=== PATIENT | female | born 1975 | race African-American/Black ===

== ENCOUNTER 2017-01-20 00:04 | Emergency (ER) | payer OTHER ==
[2017-01-20 00:54] VITALS: BP 169/110; PULSE 89; TEMP 97.1; BMI 34.3
[2017-01-20] MEDS ORDERED: LEVOFLOXACIN 250 MG TABLET (FP) PO ONE (01:48)
[2017-01-20] MEDS ORDERED: FLUCONAZOLE 100 MG TABLET (UD) PO ONE (01:48)
--- NOTE | 2017-01-20 01:51 | PDOC ---
History of Present Illness - General Chief Complaint: Pain Stated Complaint: FOOT PAIN Time Seen by Provider: 01/20/17 01:07 History Source: Patient - History of Present Illness Initial Comments: 01/20/17 01:47 41 year old female with b/l fungal rash to both feet that is progressively worsening in the last week as per patient.desquamation to both feet patient reports antifungal cream application with no improvement. + foul smell, + erythema to both feet. denies fever. + sensation Past History - Past Medical History Allergies/Adverse Reactions: Allergies Allergy/AdvReac Type Severity Reaction Status Date / Time No Known Allergies Allergy Verified 01/20/17 00:41 Home Medications: Ambulatory Orders Amlodipine Besylate [Norvasc -] 5 mg PO DAILY 02/14/17 Losartan/Hydrochlorothiazide [Losartan-Hctz 50-12.5 mg Tab] 1 each PO DAILY Clindamycin [Cleocin -] 300 mg PO TID #21 capsule 02/21/17 Fluocinonide 0.05% Oin [Lidex 0.05% Ointment -] 1 applic TP DAILY #30 grams Nicotine Patch [Nicoderm Patch -] 21 mg TD DAILY #30 patch 02/21/17 Piperacillin/Tazob 3.375 gm [Zosyn 3.375GM Ivpb (Pre-Docked)] 50 ml IVPB Q8H-IV bag 02/21/17 HTN: Yes Suicide Attempt (Hx): No - Psycho/Social/Smoking Cessation Hx Anxiety: No Suicidal Ideation: No Smoking History: Current every day smoker Have you smoked in the past 12 months: Yes Number of Cigarettes Smoked Daily: 30 Information on smoking cessation initiated: No 'Breaking Loose' booklet given: 06/21/14 Hx Alcohol Use: No Drug/Substance Use Hx: No Substance Use Type: Alcohol Review of Systems - Review of Systems Able to Perform ROS?: Yes Is the patient limited [place] proficient: No Constitutional: No: Symptoms Reported, See HPI, Chills, Diaphoresis, Fever, Loss of Appetite, Malaise, Night Sweats, Weakness, Weight Stable, Unintentional Wgt. Loss, Unexplained wgt Loss, Other Integumentary: Yes: Erythema, Rash (both feet) *Physical Exam - Vital Signs Last Vital Signs Temp Pulse Resp BP Pulse Ox 97.1 F L 89 20 169/110 96 01/20/17 00:41 01/20/17 00:41 01/20/17 00:41 01/20/17 00:41 01/20/17 00:41 - Physical Exam General Appearance: Yes: Appropriately Dressed Extremity: positive: Pedal Edema (b/l), Other (scaling in between both feet, + foul smell, redness and slight warmth to both feet) Integumentary: positive: Normal Color, Dry, Warm Neurologic: positive: Fully Oriented, Alert, Normal Mood/Affect Medical Decision Making - Medical Decision Making A: tinea pedis b/l with super infection P: fluconazole Levaquin. patient advised to inpatient admission for further management of care. patient is refusing at this time due to childcare issues at home. strict return precautions reviewed with patient. patient advised to return for worsenign symptoms as soon as possible. *DC/Admit/Observation/Transfer Diagnosis at time of Disposition: Tinea pedis of both feet, Cellulitis and abscess of foot - Discharge Dispostion Disposition: HOME Condition at time of disposition: Stable - Referrals Referrals: Ebenezer Luther MD [Primary Care Provider] - - Patient Instructions Printed Discharge Instructions: DI for Athlete's Foot Additional Instructions: clean feet keep feet dry/. apply clotrimazole as prescribed. take levaquin as prescribed. follow up with your doctor as soon as possible. return to the ER if symptoms worsen.
[2017-01-20] MEDS ORDERED: LEVOFLOXACIN 250 MG TABLET (FP) ONE (02:08)
[2017-01-20] MEDS ORDERED: LEVOFLOXACIN 500 MG TABLET (FP) ONE (02:08)
[2017-01-20] MEDS ORDERED: FLUCONAZOLE 100 MG TABLET (UD) ONE (02:08)
== END 2017-01-20 02:15 | disposition home or self-care (01) ==
LOC: JER 00:04
DX: L03.116 Cellulitis of left lower limb (principal); L03.115 Cellulitis of right lower limb; B35.3 Tinea pedis
CPT/HCPCS: 99281-25

== ENCOUNTER 2017-02-14 11:31 | Inpatient (IN) | payer OTHER ==
--- NOTE | 2017-02-14 12:29 | PDOC ---
History of Present Illness - General History Source: Patient Exam Limitations: No Limitations - History of Present Illness Initial Comments: 02/14/17 13:20 <Ghosh,Lizbeth - Last Filed: 02/14/17 13:39> - General History Source: Patient Exam Limitations: No Limitations - History of Present Illness Initial Comments: 02/14/17 15:33 Patient is a 41-year-old female with history of hypertension who complains of worsening pain and swelling to her feet bilaterally (left greater than right), with extensive disquamation and blistering of the skin of the involved extremities despite being compliant with antibiotic regiment which included Cipro, followed by cephalexin and topical Bactroban prescribed by her medical doctor and a fitness sales associate. Patient states that the pain is constant, severe, prevents her from being able to ambulate with ease, is worse with weightbearing , and involves paresthesias. Patient denies nausea/vomiting/diarrhea/fever/ chills. REVIEW OF SYSTEMS CONSTITUTIONAL: No fever, no chills, no fatigue EYES: No visual changes ENT: No ear pain, no sore throat CARDIOVASCULAR: No chest pain, no palpitations RESPIRATORY: No cough, no SOB GI: No abdominal pain, no nausea, no vomiting, no constipation, no diarrhea GENITOURINARY: No dysuria, no frequency, no hematuria MUSKULOSKELETAL: b/l foot pain, no myalgias SKIN: + blistering/disquamation of the skin b/l NEURO: No headache EXAMINATION CONSTITUTIONAL: Well-appearing; well-nourished; in no apparent distress HEAD: Normocephalic; atraumatic EYES: PERRL; EOM intact ENMT: External appears normal; normal oropharynx NECK: Supple; non-tender; no cervical lymphadenopathy CARD: Normal S1, S2; no murmurs, rubs, or gallops RESP: Normal chest excursion with respiration; breath sounds clear and equal bilaterally; no wheezes, rhonchi, or rales ABD: Soft, non-distended; non-tender; no palpable organomegaly, no palpable hernias EXT: + Extensive disquamation and blistering of the patient's feet bilaterally with numerous excoriations, extensive macerated areas interdigitally and fluid- filled vesicles bilaterally; left foot is erythematous and edematous, warm to touch c/w cellulitis; DP/TP-- intact b/l SKIN: Warm, dry, no rash NEURO: No focal neurological deficiencies. <Vini Self - Last Filed: 02/14/17 15:50> - General Chief Complaint: Abscess Boil Stated Complaint: PAIN Time Seen by Provider: 02/14/17 12:21 Past History <Lizbeth Ghosh - Last Filed: 02/14/17 13:39> - Past Medical History HTN: Yes Suicide Attempt (Hx): No - Psycho/Social/Smoking Cessation Hx Anxiety: No Suicidal Ideation: No Smoking History: Current every day smoker Have you smoked in the past 12 months: Yes Number of Cigarettes Smoked Daily: 20 Information on smoking cessation initiated: No 'Breaking Loose' booklet given: 06/21/14 Hx Alcohol Use: No Drug/Substance Use Hx: No Substance Use Type: None <Vini Self - Last Filed: 02/14/17 15:50> - Past Medical History Allergies/Adverse Reactions: Allergies Allergy/AdvReac Type Severity Reaction Status Date / Time No Known Allergies Allergy Verified 02/14/17 12:12 Home Medications: Ambulatory Orders Amlodipine Besylate [Norvasc -] 5 mg PO DAILY 02/14/17 Losartan/Hydrochlorothiazide [Losartan-Hctz 50-12.5 mg Tab] 1 each PO DAILY Review of Systems - Review of Systems Able to Perform ROS?: Yes Comments:: 02/14/17 13:21 <Lizbeth Ghosh - Last Filed: 02/14/17 13:39> *Physical Exam - Vital Signs Last Vital Signs Temp Pulse Resp BP Pulse Ox 98.3 F 95 H 18 143/105 100 02/14/17 12:05 02/14/17 12:05 02/14/17 12:05 02/14/17 12:05 02/14/17 12:05 - Physical Exam Comments: 02/14/17 13:21 <Lizbeth Ghosh - Last Filed: 02/14/17 13:39> - Vital Signs Last Vital Signs Temp Pulse Resp BP Pulse Ox 98.3 F 95 H 18 143/105 100 02/14/17 12:05 02/14/17 12:05 02/14/17 12:05 02/14/17 12:05 02/14/17 12:05 <Vini Self - Last Filed: 02/14/17 15:50> ED Treatment Course - LABORATORY CBC & Chemistry Diagram: 02/14/17 13:01 02/14/17 13:01 - ADDITIONAL ORDERS Additional order review: 02/14/17 13:01 RBC 4.93 MCV 86.8 MCHC 32.0 RDW 15.4 MPV 9.5 Neutrophils % 74.4 Lymphocytes % 15.0 Monocytes % 7.8 Eosinophils % 2.0 Basophils % 0.8 <Lizbeth Ghosh - Last Filed: 02/14/17 13:39> - LABORATORY CBC & Chemistry Diagram: 02/14/17 13:01 02/14/17 13:01 <Vini Self - Last Filed: 02/14/17 15:50> Medical Decision Making - Medical Decision Making 02/14/17 13:[address] Dumont. Immediate response. Case was discussed. 02/14/17 13:39 Dr. Dumont arrived to the ER and examined the patient. <Lizbeth Ghosh - Last Filed: 02/14/17 13:39> - Medical Decision Making 02/14/17 15:44 Patient is a 41-year-old female who presents with extensive disquamation, maceration and blistering of both feet that has not responded to treatment with ciprofloxacin, cephalexin and topical Bactroban. In the ER, patient is awake and alert, afebrile, hemodynamically stable. Left foot appears cellulitic requiring inpatient antibiotic therapy and podiatric consult. <Vini Self - Last Filed: 02/14/17 15:50> *DC/Admit/Observation/Transfer - Attestations Scribe Attestion: 02/14/17 13:21 Documentation prepared by Lizbeth Ghosh, acting as senior medical transcriptionist for Vini Self MD. <Lizbeth Ghosh - Last Filed: 02/14/17 13:39> - Discharge Dispostion Admit: Yes <Vini Self - Last Filed: 02/14/17 15:50> Diagnosis at time of Disposition: Cellulitis and abscess of foot - Discharge Dispostion Condition at time of disposition: Fair - Referrals Referrals: Lorna Luther [Primary Care Provider] -
[2017-02-14 13:16] LABS: BASOPHIL 0.8 % (0-2.0); MCH 27.8 pg (25.7-33.7); MEAN CELL VOLUME 86.8 fl (80-96); MEAN PLT VOLUME 9.5 fl (7.5-11.1); NEUTROPHILS 74.4 % (42.8-82.8); PLATELET COUNT 187 K/MM3 (134-434); RDW 15.4 % (11.6-15.6); WHITE BLOOD COUNT 12.1 K/mm3 (4.0-10.0)
[2017-02-14 13:32] LABS: ALBUMIN 3.5 g/dl (3.4-5.0); ANION GAP 14 (8-16); BILIRUBIN,TOTAL 1.2 mg/dL (0.2-1.0); C-REACTIVE PROTEIN 1.1 MG/DL (0.00-0.3); CALCIUM 9.2 mg/dL (8.5-10.1); CO2 26 mmol/L (21-32); CREATININE 0.6 mg/dL (0.55-1.02); GLUCOSE,RANDOM 96 mg/dL (74-106); SGOT/AST 25 U/L (15-37); SGPT/ALT 23 U/L (12-78); TOT PROT 7.6 g/dl (6.4-8.2)
[2017-02-14 13:33] LABS: ALK PHOS 74 U/L (45-117); INR 1.09 (0.82-1.09)
[2017-02-14] MEDS ORDERED: VANCOMYCIN 1,500 MG in DEXTROSE 5%-WATER - 500 ML IVPB ONE (14:10)
[2017-02-14 17:07] LABS: ERYTHROCYTE SEDIMENTATION RATE 25 mm/hr (0-20)
--- NOTE | 2017-02-14 18:01 | CONSULT ---
Consult - text type - Consultation Consultation Note: Podiatry Consultation: 41 year old F, history of HTN, presents with severe blistering, drainage and increased redness/swelling to bilateral feet L>R. Patient reports that her feet have been blistering and scaling since December. She has seen PCP and ice skater recently for said problem. She was prescribed keflex and bactroban with no improvement. Also was placed on levaquin in ED, again with no improvement. She denies F/V/N/C/SOB/CP. She has painful blistering of the feet with drainage. Patient does not recall applying any medication directly on the feet prior to symptoms. She does note wearing new shoegear frequently, sometimes without socks. PMHx: HTN Meds: noted in chart ALL: NKMA ANABELA: Pedal pulses palpable, TG wnl, CFT brisk to all toes bilaterally. On bilateral feet, left worse than right, there is extensive desquamation of the plantar arch and the digits. There is maceration present interdigitally. There is significant serous blistering with fluctuance throughout both feet. There is no purulent drainage, no probing ulcers, no soft tissue crepitus. There is edema and erythema to the left foot. There is no streaking cellulitis. There is no lymphadenopathy. WBC: 12.1 ESR: 25 Blood Cx: pending B/L Foot XR: pending Imp: 41 year old F ? of contact dermatitis vs. tinea pedis with superimposed bacterial infection 1. IV abx 2. Needs wound cx 3. F/u foot XR 4. ID consultation 5. Will follow. Thank you for the consult. Karoline Meier DPM
[2017-02-14 18:40] VITALS: BMI 30.7
--- NOTE | 2017-02-14 19:05 | HP ---
Admitting History and Physical - Admission History of Present Illness: Pt is a 41 y/o female w/ PH significant for HTN. Pt presented to the ER with severe blistering, drainage and increased redness/swelling to bilateral feet L> R since December. Pt saw her PMD and was started on antibxs(bactrim/keflex) w/ no improvement. She also then developed a rash and was told it was due to antibxs ? but wasn't given anything. - Past Medical History Cardiovascular: Yes: HTN - Smoking History Smoking history: Current every day smoker Have you smoked in the past 12 months: Yes Aproximately how many cigarettes per day: 20 - Alcohol/Substance Use Hx Alcohol Use: No Home Medications - Allergies Allergies/Adverse Reactions: Allergies Allergy/AdvReac Type Severity Reaction Status Date / Time No Known Allergies Allergy Verified 02/14/17 12:12 - Home Medications Home Medications: Ambulatory Orders Amlodipine Besylate [Norvasc -] 5 mg PO DAILY 02/14/17 Losartan/Hydrochlorothiazide [Losartan-Hctz 50-12.5 mg Tab] 1 each PO DAILY Family Disease History - Family Disease History Family History: Unremarkable Review of Systems - Review of Systems Constitutional: reports: No Symptoms Eyes: reports: No Symptoms HENT: reports: No Symptoms Neck: reports: No Symptoms Cardiovascular: reports: No Symptoms Respiratory: reports: No Symptoms Gastrointestinal: reports: No Symptoms Physical Examination Vital Signs: Vital Signs Temperature 98.2 F 02/14/17 18:23 Pulse Rate 79 02/14/17 18:23 Respiratory Rate 20 02/14/17 18:23 Blood Pressure 155/101 02/14/17 18:23 O2 Sat by Pulse Oximetry (%) 98 02/14/17 18:23 Constitutional: Yes: Anxious Eyes: Yes: WNL HENT: Yes: WNL Neck: Yes: WNL Cardiovascular: Yes: WNL, Regular Rate and Rhythm Respiratory: Yes: WNL, Regular, CTA Bilaterally Gastrointestinal: Yes: WNL, Normal Bowel Sounds, Soft Extremities: Yes: Other (B/L exfoliation w/ maceration present interdigitally. Open blisters between toes) Problem List - Problems (1) Cellulitis Assessment/Plan: Cont IV antibxs ID consult Vascular consult Wound culture Wound care Code(s): L03.90 - CELLULITIS, UNSPECIFIED (2) HTN (hypertension) Assessment/Plan: Cont antihypertensives BP stable Code(s): I10 - ESSENTIAL (PRIMARY) HYPERTENSION
[2017-02-14] MEDS: PIPERACILLIN/TAZOB 3.375 GM/50 ML PRE-DOCKED IVPB SCH (21:03)
[2017-02-14] MEDS: HEPARIN NA (PORCINE) 5,000 UNITS/ML 1ML VIAL SQ SCH (21:03)
[2017-02-14] MEDS: KETOROLAC TROMETHAMINE 30 MG/1 ML VIAL IVPB PRN (23:55)
[2017-02-14] MEDS: diphenhydrAMINE HCL 25 MG CAPSULE (FP) PO PRN (23:56)
[2017-02-15] MEDS ORDERED: PIPERACILLIN/TAZOB 3.375 GM/50 ML PRE-DOCKED IVPB SCH (02:00)
[2017-02-15] MEDS ORDERED: VANCOMYCIN 1 GRAM (PRE-DOCKED) 1,000 MG/250 ML BAG IVPB ONE (02:00)
[2017-02-15] MEDS: PIPERACILLIN/TAZOB 3.375 GM/50 ML PRE-DOCKED IVPB SCH (06:17)
[2017-02-15] MEDS: diphenhydrAMINE HCL 25 MG CAPSULE (FP) PO PRN ×2 (06:22→22:53)
[2017-02-15 06:55] LABS: EOSINOPHIL 4.9 % (0-4.5); MCH 28.5 pg (25.7-33.7); MEAN CELL VOLUME 86.3 fl (80-96); MEAN PLT VOLUME 9.7 fl (7.5-11.1); NEUTROPHILS 69.2 % (42.8-82.8); PLATELET COUNT 178 K/MM3 (134-434); WHITE BLOOD COUNT 9.4 K/mm3 (4.0-10.0)
[2017-02-15 07:15] LABS: ALBUMIN 2.5 g/dl (3.4-5.0); ALK PHOS 56 U/L (45-117); ANION GAP 12 (8-16); BILIRUBIN,TOTAL 0.5 mg/dL (0.2-1.0); CALCIUM 8.6 mg/dL (8.5-10.1); CO2 27 mmol/L (21-32); CREATININE 0.7 mg/dL (0.55-1.02); GLUCOSE,RANDOM 106 mg/dL (74-106); SGOT/AST 16 U/L (15-37); SGPT/ALT 18 U/L (12-78); TOT PROT 5.8 g/dl (6.4-8.2)
[2017-02-15] MEDS: HEPARIN NA (PORCINE) 5,000 UNITS/ML 1ML VIAL SQ SCH ×2 (09:56→22:54)
[2017-02-15] MEDS: LOSARTAN 50MG/HCTZ 12.5MG 1 TAB (FP) PO SCH (09:56)
[2017-02-15] MEDS: amLODIPine BESYLATE 5 MG TABLET (FP) PO SCH (09:56)
[2017-02-15] MEDS: PIPERACILLIN/TAZOB 3.375 GM 50 ML IVPB SCH ×2 (13:50→17:35)
[2017-02-15] MEDS ORDERED: PT OWN MED DRAWER 7, Y5N ONE ×2 (14:32→17:31)
[2017-02-15] MEDS: CLINDAMYCIN 300 MG PREMIX IVPB 50 ML IVPB SCH ×2 (14:32→17:34)
[2017-02-15] MEDS: NYSTATIN 100,000 UNIT/GM TOPICAL CREAM 15 GM TUBE TP SCH ×2 (17:35→23:04)
--- NOTE | 2017-02-15 22:23 | PN ---
Progress Note, Physician History of Present Illness: No new complaints - Current Medication List Current Medications: Active Medications Amlodipine Besylate (Norvasc -) 5 mg PO DAILY [facility] Last Admin: 02/15/17 09:56 Dose: 5 mg Diphenhydramine HCl (Benadryl -) 25 mg PO Q6H PRN PRN Reason: ITCHINESS Last Admin: 02/15/17 06:22 Dose: 25 mg HCTZ/Losartan Potassium (Hyzaar -) 1 tab PO DAILY [facility] Last Admin: 02/15/17 09:56 Dose: 1 tab Heparin Sodium (Porcine) (Heparin -) 5,000 unit SQ BID [facility] Last Admin: 02/15/17 09:56 Dose: 5,000 unit Clindamycin Phosphate (Cleocin 300 Mg Premix Ivpb) 50 mls @ 100 mls/hr IVPB Q8H -IV [facility] Last Admin: 02/15/17 17:34 Dose: 100 mls/hr Piperacillin Sod/Tazobactam Sod (Zosyn 3.375gm Ivpb (Pre-Docked)) 50 mls @ 100 mls/hr IVPB Q8H-IV [facility] PRN Reason: Protocol Last Admin: 02/15/17 17:35 Dose: 100 mls/hr Ketorolac Tromethamine (Toradol Injection -) 30 mg IVPB Q6H PRN PRN Reason: PAIN Stop: 02/19/17 23:43 Last Admin: 02/14/17 23:55 Dose: 30 mg Nystatin (Mycostatin Cream -) 1 applic TP Q6HPO [facility] Last Admin: 02/15/17 17:35 Dose: 1 applic - Objective Vital Signs: Vital Signs Temperature 97.6 F 02/15/17 13:35 Pulse Rate 67 02/15/17 13:35 Respiratory Rate 18 02/15/17 13:35 Blood Pressure 126/67 02/15/17 13:35 O2 Sat by Pulse Oximetry (%) 99 02/15/17 09:00 Constitutional: Yes: Well Nourished Eyes: Yes: WNL HENT: Yes: WNL Neck: Yes: Supple Cardiovascular: Yes: WNL, Regular Rate and Rhythm Respiratory: Yes: WNL, Regular, Hyperresonant Extremities: Yes: Other ((B/L exfoliation w/ maceration present interdigitally. Open blisters between toes)) Labs: CBC, BMP 02/15/17 05:55 02/15/17 05:55 INR, PTT INR 1.09 (0.82-1.09) 02/14/17 13:01 Problem List - Problems (1) Cellulitis Assessment/Plan: Cont IV vanco//[email or web address]/clinda ID consult appreciated Vascular consult Wound culture Wound care Code(s): L03.90 - CELLULITIS, UNSPECIFIED (2) HTN (hypertension) Assessment/Plan: Cont antihypertensives BP stable Code(s): I10 - ESSENTIAL (PRIMARY) HYPERTENSION
[2017-02-15] MEDS: KETOROLAC TROMETHAMINE 30 MG/1 ML VIAL IVPB PRN (22:53)
[2017-02-16] MEDS: VANCOMYCIN 1 GRAM (PRE-DOCKED) 1,000 MG/250 ML BAG IVPB SCH (00:52)
[2017-02-16] MEDS ORDERED: PT OWN MED DRAWER 7, Y5N ONE ×2 (01:22→18:01)
[2017-02-16] MEDS: CLINDAMYCIN 300 MG PREMIX IVPB 50 ML IVPB SCH ×3 (01:26→18:03)
[2017-02-16] MEDS: PIPERACILLIN/TAZOB 3.375 GM 50 ML IVPB SCH ×3 (01:26→18:32)
[2017-02-16] MEDS: NYSTATIN 100,000 UNIT/GM TOPICAL CREAM 15 GM TUBE TP SCH ×4 (05:28→23:30)
[2017-02-16] MEDS: HEPARIN NA (PORCINE) 5,000 UNITS/ML 1ML VIAL SQ SCH ×2 (10:40→21:21)
[2017-02-16] MEDS: amLODIPine BESYLATE 5 MG TABLET (FP) PO SCH (10:42)
[2017-02-16] MEDS: LOSARTAN 50MG/HCTZ 12.5MG 1 TAB (FP) PO SCH (10:42)
[2017-02-16] MEDS: NICOTINE 21 MG/24 HOURS TOPICAL PATCH TD SCH (10:42)
--- NOTE | 2017-02-16 15:51 | CONSULT ---
Consult Consult Specialty:: infectious diseases Referred by:: Reason for Consultation:: cellulitis of both legs,foot - History of Present Illness Chief Complaint: swelling and pain of both legs History of Present Illness: y of Present Illness: Pt is a 41 y/o female w/ PH significant for HTN. patient came with multiple blisters on the legs bilateral and according to her has been going for quite a few days She mentions that she had seen her PMD and was prescribed abx --bactrim/keflex without any resolvement patient also showing rash and says it developed after se had abx patient also got levaquin - History Source History Provided By: Patient Limitations to Obtaining History: No Limitations - Past Medical History Cardio/Vascular: Yes: HTN - Alcohol/Substance Use Hx Alcohol Use: No - Smoking History Smoking history: Current every day smoker Have you smoked in the past 12 months: Yes Aproximately how many cigarettes per day: 20 Home Medications - Allergies Allergies/Adverse Reactions: Allergies Allergy/AdvReac Type Severity Reaction Status Date / Time No Known Allergies Allergy Verified 02/14/17 12:12 - Home Medications Home Medications: Ambulatory Orders Amlodipine Besylate [Norvasc -] 5 mg PO DAILY 02/14/17 Losartan/Hydrochlorothiazide [Losartan-Hctz 50-12.5 mg Tab] 1 each PO DAILY Review of Systems - Review of Systems Constitutional: reports: No Symptoms Eyes: reports: No Symptoms HENT: reports: No Symptoms Neck: reports: No Symptoms Cardiovascular: reports: No Symptoms Respiratory: reports: No Symptoms Gastrointestinal: reports: No Symptoms Genitourinary: reports: No Symptoms Musculoskeletal: reports: Other Integumentary: reports: Erythema, Lesions, Rash, Other (bilateral feet ulcers with desquamations) Neurological: reports: No Symptoms Endocrine: reports: No Symptoms Hematology/Lymphatic: reports: No Symptoms Psychiatric: reports: No Symptoms Physical Exam Vital Signs: Vital Signs Temperature 98.1 F 02/16/17 14:15 Pulse Rate 60 02/16/17 14:15 Respiratory Rate 20 02/16/17 10:00 Blood Pressure 148/89 02/16/17 14:15 O2 Sat by Pulse Oximetry (%) 99 02/15/17 09:00 Constitutional: Yes: Well Nourished, No Distress, Calm Eyes: Yes: Conjunctiva Clear Cardiovascular: Yes: Regular Rate and Rhythm Respiratory: Yes: Regular, CTA Bilaterally Gastrointestinal: Yes: Normal Bowel Sounds, Soft Musculoskeletal: Yes: Other Extremities: Yes: Other Integumentary: Yes: Erythema, Other Wound/Incision: Yes: Other (On bilateral feet, left worse than right, there is extensive desquamation of the plantar arch and the digits. There is maceration present interdigitally. There is significant serous blistering with fluctuance throughout both feet. There is no purulent drainage,nocrepitus. There is edema and erythema to the left foot. no lymphadenopathy,no significant cellulitits) Labs: CBC, BMP 02/15/17 05:55 02/15/17 05:55 Imaging - Results X-ray: Report Reviewed, Image Reviewed Assessment/Plan after looking at the leg patient has a high chance of having both bacterial and fungal infection with chances of mrsa patient otherwise looks comfortable i have looked at the podiatry note at the moment i am going to start her on abx we might need to cx the foor but i think it will be mixed cx roblem List - Problems (1) Cellulitis Assessment/Plan: Code(s): L03.90 - CELLULITIS, UNSPECIFIED (2) HTN (hypertension) Code(s): I10 - ESSENTIAL (PRIMARY) HYPERTENSION fungal infection of the foot plan will start clinda and zosyn nystatin cream for local application rest as per primary podiatry on case
--- NOTE | 2017-02-16 16:00 | PN ---
Progress Note, Physician History of Present Illness: patient feeling much better wants to go home patient says she had seen some gift consultant legs looking better - Current Medication List Current Medications: Active Medications Amlodipine Besylate (Norvasc -) 5 mg PO DAILY [facility] Last Admin: 02/16/17 10:42 Dose: 5 mg Diphenhydramine HCl (Benadryl -) 25 mg PO Q6H PRN PRN Reason: ITCHINESS Last Admin: 02/15/17 22:53 Dose: 25 mg HCTZ/Losartan Potassium (Hyzaar -) 1 tab PO DAILY [facility] Last Admin: 02/16/17 10:42 Dose: 1 tab Heparin Sodium (Porcine) (Heparin -) 5,000 unit SQ BID [facility] Last Admin: 02/16/17 10:40 Dose: 5,000 unit Clindamycin Phosphate (Cleocin 300 Mg Premix Ivpb) 50 mls @ 100 mls/hr IVPB Q8H -IV [facility] Last Admin: 02/16/17 10:57 Dose: 100 mls/hr Piperacillin Sod/Tazobactam Sod (Zosyn 3.375gm Ivpb (Pre-Docked)) 50 mls @ 100 mls/hr IVPB Q8H-IV [facility] PRN Reason: Protocol Last Admin: 02/16/17 10:42 Dose: 100 mls/hr Ketorolac Tromethamine (Toradol Injection -) 30 mg IVPB Q6H PRN PRN Reason: PAIN Stop: 02/19/17 23:43 Last Admin: 02/15/17 22:53 Dose: 30 mg Nicotine (Nicoderm Patch -) 21 mg TD DAILY [facility] Last Admin: 02/16/17 10:42 Dose: Not Given Nystatin (Mycostatin Cream -) 1 applic TP Q6HPO [facility] Last Admin: 02/16/17 12:49 Dose: 1 applic - Objective Vital Signs: Vital Signs Temperature 98.1 F 02/16/17 14:15 Pulse Rate 60 02/16/17 14:15 Respiratory Rate 20 02/16/17 10:00 Blood Pressure 148/89 02/16/17 14:15 O2 Sat by Pulse Oximetry (%) 99 02/15/17 09:00 Constitutional: Yes: No Distress, Calm Cardiovascular: Yes: Regular Rate and Rhythm Respiratory: Yes: Regular, CTA Bilaterally Gastrointestinal: Yes: Normal Bowel Sounds, Soft Musculoskeletal: Yes: Other Extremities: Yes: Other Wound/Incision: Yes: Other (wounds as described before) Neurological: Yes: Alert, Oriented Psychiatric: Yes: Alert, Oriented Labs: CBC, BMP 02/15/17 05:55 02/15/17 05:55 INR, PTT INR 1.09 (0.82-1.09) 02/14/17 13:01 Assessment/Plan after looking at the leg patient has a high chance of having both bacterial and fungal infection with chances of mrsa patient otherwise looks comfortable i have looked at the podiatry note at the moment i am going to start her on abx we might need to cx the foor but i think it will be mixed cx roblem List - Problems (1) Cellulitis Assessment/Plan: Code(s): L03.90 - CELLULITIS, UNSPECIFIED (2) HTN (hypertension) Code(s): I10 - ESSENTIAL (PRIMARY) HYPERTENSION fungal infection of the foot plan continue current line of mgmt improving i think we should get a dermatology opinion rest ct current mgmt
--- NOTE | 2017-02-16 17:34 | CONSULT ---
Consult - Past Medical History Cardio/Vascular: Yes: HTN - Alcohol/Substance Use Hx Alcohol Use: No - Smoking History Smoking history: Current every day smoker Have you smoked in the past 12 months: Yes Aproximately how many cigarettes per day: 20 Home Medications - Allergies Allergies/Adverse Reactions: Allergies Allergy/AdvReac Type Severity Reaction Status Date / Time No Known Allergies Allergy Verified 02/14/17 12:12 - Home Medications Home Medications: Ambulatory Orders Amlodipine Besylate [Norvasc -] 5 mg PO DAILY 02/14/17 Losartan/Hydrochlorothiazide [Losartan-Hctz 50-12.5 mg Tab] 1 each PO DAILY Physical Exam Vital Signs: Vital Signs Temperature 98.1 F 02/16/17 14:15 Pulse Rate 60 02/16/17 14:15 Respiratory Rate 20 02/16/17 10:00 Blood Pressure 148/89 02/16/17 14:15 O2 Sat by Pulse Oximetry (%) 99 02/15/17 09:00 Labs: CBC, BMP 02/15/17 05:55 02/15/17 05:55 Assessment/Plan Vascular Surgery Patient is a 41-year-old female with history of hypertension who complains of worsening pain and swelling to her feet bilaterally (left greater than right), with extensive disquamation and blistering of the skin of the involved extremities despite being compliant with antibiotic regiment which included Cipro, followed by cephalexin and topical Bactroban prescribed by her medical doctor and a data review specialist. Patient states that the pain is constant, severe, prevents her from being able to ambulate with ease, is worse with weightbearing , and involves paresthesias. Patient denies nausea/vomiting/diarrhea/fever/chill PE head - NC/At Lung - CTA Heart - RRR abd - soft,nt,nd Ext - Bilateral lower ext ulcers with blisters. Painful to touch Pt has good pulses. feet are warm. A/P 1. compression with tali 2. IV antibiotics. No need for vascular intervention. Should follow in wound care clinic after DC Podiatry on case. Brock Dumont DO
--- NOTE | 2017-02-16 20:19 | PN ---
Progress Note, Physician History of Present Illness: No new complaints - Current Medication List Current Medications: Active Medications Amlodipine Besylate (Norvasc -) 5 mg PO DAILY [facility] Last Admin: 02/16/17 10:42 Dose: 5 mg Diphenhydramine HCl (Benadryl -) 25 mg PO Q6H PRN PRN Reason: ITCHINESS Last Admin: 02/15/17 22:53 Dose: 25 mg HCTZ/Losartan Potassium (Hyzaar -) 1 tab PO DAILY [facility] Last Admin: 02/16/17 10:42 Dose: 1 tab Heparin Sodium (Porcine) (Heparin -) 5,000 unit SQ BID [facility] Last Admin: 02/16/17 10:40 Dose: 5,000 unit Clindamycin Phosphate (Cleocin 300 Mg Premix Ivpb) 50 mls @ 100 mls/hr IVPB Q8H -IV [facility] Last Admin: 02/16/17 18:03 Dose: 100 mls/hr Piperacillin Sod/Tazobactam Sod (Zosyn 3.375gm Ivpb (Pre-Docked)) 50 mls @ 100 mls/hr IVPB Q8H-IV [facility] PRN Reason: Protocol Last Admin: 02/16/17 18:32 Dose: 100 mls/hr Ketorolac Tromethamine (Toradol Injection -) 30 mg IVPB Q6H PRN PRN Reason: PAIN Stop: 02/19/17 23:43 Last Admin: 02/15/17 22:53 Dose: 30 mg Nicotine (Nicoderm Patch -) 21 mg TD DAILY [facility] Last Admin: 02/16/17 10:42 Dose: Not Given Nystatin (Mycostatin Cream -) 1 applic TP Q6HPO [facility] Last Admin: 02/16/17 18:45 Dose: Not Given - Objective Vital Signs: Vital Signs Temperature 98.1 F 02/16/17 14:15 Pulse Rate 60 02/16/17 14:15 Respiratory Rate 20 02/16/17 10:00 Blood Pressure 148/89 02/16/17 14:15 O2 Sat by Pulse Oximetry (%) 99 02/15/17 09:00 Constitutional: Yes: Well Nourished, Other (SKIN papular rash on extremities/ trunk/neck) Eyes: Yes: WNL HENT: Yes: WNL Neck: Yes: WNL, Supple Cardiovascular: Yes: WNL, Regular Rate and Rhythm Respiratory: Yes: WNL, Regular, CTA Bilaterally Gastrointestinal: Yes: WNL, Normal Bowel Sounds, Soft Extremities: Yes: Other ((+) b/l erythema w/ open blisters) Labs: CBC, BMP 02/15/17 05:55 02/15/17 05:55 INR, PTT INR 1.09 (0.82-1.09) 02/14/17 13:01 Problem List - Problems (1) Cellulitis Assessment/Plan: Cont IV vanco//zosyn/clinda Cont wound care Wound culture w/ multiple organisims Will get derm consult Benadryl prn Code(s): L03.90 - CELLULITIS, UNSPECIFIED (2) HTN (hypertension) Assessment/Plan: Cont antihypertensives BP stable Code(s): I10 - ESSENTIAL (PRIMARY) HYPERTENSION
[2017-02-16] MEDS: diphenhydrAMINE HCL 25 MG CAPSULE (FP) PO PRN (21:21)
[2017-02-16] MEDS: KETOROLAC TROMETHAMINE 30 MG/1 ML VIAL IVPB PRN (23:12)
[2017-02-17] MEDS ORDERED: PT OWN MED DRAWER 7, Y5N ONE ×4 (01:08→22:53)
[2017-02-17] MEDS: CLINDAMYCIN 300 MG PREMIX IVPB 50 ML IVPB SCH ×3 (01:28→17:22)
[2017-02-17] MEDS: PIPERACILLIN/TAZOB 3.375 GM 50 ML IVPB SCH ×3 (02:14→17:22)
[2017-02-17] MEDS: NYSTATIN 100,000 UNIT/GM TOPICAL CREAM 15 GM TUBE TP SCH ×4 (05:54→23:07)
[2017-02-17] MEDS: LOSARTAN 50MG/HCTZ 12.5MG 1 TAB (FP) PO SCH (10:06)
[2017-02-17] MEDS: HEPARIN NA (PORCINE) 5,000 UNITS/ML 1ML VIAL SQ SCH ×2 (10:06→22:05)
[2017-02-17] MEDS: amLODIPine BESYLATE 5 MG TABLET (FP) PO SCH (10:06)
[2017-02-17] MEDS: NICOTINE 21 MG/24 HOURS TOPICAL PATCH TD SCH (10:07)
--- NOTE | 2017-02-17 16:37 | CONSULT ---
Consult Consult Specialty:: Dermatology - History Source History Provided By: Patient - Past Medical History Cardio/Vascular: Yes: HTN - Alcohol/Substance Use Hx Alcohol Use: No - Smoking History Smoking history: Current every day smoker Have you smoked in the past 12 months: Yes Aproximately how many cigarettes per day: 20 Home Medications - Allergies Allergies/Adverse Reactions: Allergies Allergy/AdvReac Type Severity Reaction Status Date / Time No Known Allergies Allergy Verified 02/14/17 12:12 - Home Medications Home Medications: Ambulatory Orders Amlodipine Besylate [Norvasc -] 5 mg PO DAILY 02/14/17 Losartan/Hydrochlorothiazide [Losartan-Hctz 50-12.5 mg Tab] 1 each PO DAILY Physical Exam Vital Signs: Vital Signs Temperature 98.9 F 02/17/17 14:00 Pulse Rate 64 02/17/17 14:00 Respiratory Rate 20 02/17/17 09:32 Blood Pressure 156/66 02/17/17 14:00 O2 Sat by Pulse Oximetry (%) 99 02/17/17 09:32 Labs: CBC, BMP 02/15/17 05:55 02/15/17 05:55 Assessment/Plan Patient was recently seen by NICOLASA and treated for tinea pedis. She subsequently developed an infection on her feet and at which time she was treated with an antibiotic and subsequently developed vesicles on hands and generalized macular papular eruption. the differential diagnosis includes a drug eruption vs an ID reaction to the foot infection. Discuss RBAT of treatment with oral and topical steroids. Patient agrees. She will follow up with her Compliance Spec.
[2017-02-17] MEDS: predniSONE 20 MG TABLET (UD) PO SCH (17:31)
[2017-02-17] MEDS: FLUOCINONIDE 0.05% TOP OINT (15 GM TUBE) TP SCH ×2 (18:27→22:04)
--- NOTE | 2017-02-17 18:53 | PN ---
Progress Note, Physician History of Present Illness: COVERING DR OROZCO MY FIRST ENCOUNTER WITH THIS PT - Current Medication List Current Medications: Active Medications Amlodipine Besylate (Norvasc -) 5 mg PO DAILY [facility] Last Admin: 02/17/17 10:06 Dose: 5 mg Diphenhydramine HCl (Benadryl -) 25 mg PO Q6H PRN PRN Reason: ITCHINESS Last Admin: 02/16/17 21:21 Dose: 25 mg Fluocinonide (Lidex 0.05% Ointment -) 1 applic TP DAILY [facility] Last Admin: 02/17/17 18:27 Dose: Not Given HCTZ/Losartan Potassium (Hyzaar -) 1 tab PO DAILY [facility] Last Admin: 02/17/17 10:06 Dose: 1 tab Heparin Sodium (Porcine) (Heparin -) 5,000 unit SQ BID [facility] Last Admin: 02/17/17 10:06 Dose: 5,000 unit Clindamycin Phosphate (Cleocin 300 Mg Premix Ivpb) 50 mls @ 100 mls/hr IVPB Q8H -IV [facility] Last Admin: 02/17/17 17:22 Dose: 100 mls/hr Piperacillin Sod/Tazobactam Sod (Zosyn 3.375gm Ivpb (Pre-Docked)) 50 mls @ 100 mls/hr IVPB Q8H-IV [facility] PRN Reason: Protocol Last Admin: 02/17/17 17:22 Dose: 100 mls/hr Ketorolac Tromethamine (Toradol Injection -) 30 mg IVPB Q6H PRN PRN Reason: PAIN Stop: 02/19/17 23:43 Last Admin: 02/16/17 23:12 Dose: 30 mg Nicotine (Nicoderm Patch -) 21 mg TD DAILY [facility] Last Admin: 02/17/17 10:07 Dose: Not Given Nystatin (Mycostatin Cream -) 1 applic TP Q6HPO [facility] Last Admin: 02/17/17 17:23 Dose: 1 applic Prednisone (Deltasone -) 30 mg PO DAILY [facility] Stop: 02/21/17 11:00 Prednisone (Deltasone -) 10 mg PO DAILY [facility] Stop: 02/25/17 11:00 Prednisone (Deltasone -) 40 mg PO DAILY [facility] Stop: 02/19/17 17:00 Last Admin: 02/17/17 17:31 Dose: 40 mg Prednisone (Deltasone -) 20 mg PO DAILY [facility] Stop: 02/23/17 11:00 - Objective Vital Signs: Vital Signs Temperature 98.9 F 02/17/17 14:00 Pulse Rate 64 02/17/17 14:00 Respiratory Rate 20 02/17/17 09:32 Blood Pressure 156/66 02/17/17 14:00 O2 Sat by Pulse Oximetry (%) 99 02/17/17 09:32 Constitutional: Yes: No Distress Eyes: Yes: Conjunctiva Clear HENT: Yes: Atraumatic Neck: Yes: Supple Cardiovascular: Yes: Regular Rate and Rhythm Respiratory: Yes: CTA Bilaterally Extremities: Yes: Other (cellulitis both feet) Neurological: Yes: Alert, Oriented Labs: CBC, BMP 02/15/17 05:55 02/15/17 05:55 INR, PTT INR 1.09 (0.82-1.09) 02/14/17 13:01 Problem List - Problems (1) Cellulitis Code(s): L03.90 - CELLULITIS, UNSPECIFIED (2) Cellulitis and abscess of foot Code(s): L03.119 - CELLULITIS OF UNSPECIFIED PART OF LIMB L02.619 - CUTANEOUS ABSCESS OF UNSPECIFIED FOOT (3) HTN (hypertension) Code(s): I10 - ESSENTIAL (PRIMARY) HYPERTENSION Assessment/Plan Problem List - Problems (1) Cellulitis Assessment/Plan: Cont IV vanco//zosyn/clinda Cont wound care Wound culture w/ multiple organisims derm consult reviewed Benadryl prn Code(s): L03.90 - CELLULITIS, UNSPECIFIED (2) HTN (hypertension) Assessment/Plan: Cont antihypertensives BP stable Code(s): I10 - ESSENTIAL (PRIMARY) HYPERTENSION
[2017-02-18] MEDS ORDERED: PT OWN MED DRAWER 7, Y5N ONE ×4 (01:31→21:46)
[2017-02-18] MEDS: PIPERACILLIN/TAZOB 3.375 GM 50 ML IVPB SCH ×3 (01:33→17:09)
[2017-02-18] MEDS: CLINDAMYCIN 300 MG PREMIX IVPB 50 ML IVPB SCH ×3 (01:33→18:10)
[2017-02-18] MEDS: NYSTATIN 100,000 UNIT/GM TOPICAL CREAM 15 GM TUBE TP SCH ×4 (05:31→23:28)
--- NOTE | 2017-02-18 09:24 | PN ---
Progress Note, Physician History of Present Illness: patient feeling much better legs improving dermatology note noted - Current Medication List Current Medications: Active Medications Amlodipine Besylate (Norvasc -) 5 mg PO DAILY [facility] Last Admin: 02/17/17 10:06 Dose: 5 mg Diphenhydramine HCl (Benadryl -) 25 mg PO Q6H PRN PRN Reason: ITCHINESS Last Admin: 02/16/17 21:21 Dose: 25 mg Fluocinonide (Lidex 0.05% Ointment -) 1 applic TP DAILY [facility] Last Admin: 02/17/17 22:04 Dose: 1 applic HCTZ/Losartan Potassium (Hyzaar -) 1 tab PO DAILY [facility] Last Admin: 02/17/17 10:06 Dose: 1 tab Heparin Sodium (Porcine) (Heparin -) 5,000 unit SQ BID [facility] Last Admin: 02/17/17 22:05 Dose: 5,000 unit Clindamycin Phosphate (Cleocin 300 Mg Premix Ivpb) 50 mls @ 100 mls/hr IVPB Q8H -IV [facility] Last Admin: 02/18/17 01:33 Dose: 100 mls/hr Piperacillin Sod/Tazobactam Sod (Zosyn 3.375gm Ivpb (Pre-Docked)) 50 mls @ 100 mls/hr IVPB Q8H-IV [facility] PRN Reason: Protocol Last Admin: 02/18/17 01:33 Dose: 100 mls/hr Ketorolac Tromethamine (Toradol Injection -) 30 mg IVPB Q6H PRN PRN Reason: PAIN Stop: 02/19/17 23:43 Last Admin: 02/16/17 23:12 Dose: 30 mg Nicotine (Nicoderm Patch -) 21 mg TD DAILY [facility] Last Admin: 02/17/17 10:07 Dose: Not Given Nystatin (Mycostatin Cream -) 1 applic TP Q6HPO [facility] Last Admin: 02/18/17 05:31 Dose: 1 applic Prednisone (Deltasone -) 30 mg PO DAILY [facility] Stop: 02/21/17 11:00 Prednisone (Deltasone -) 10 mg PO DAILY [facility] Stop: 02/25/17 11:00 Prednisone (Deltasone -) 40 mg PO DAILY [facility] Stop: 02/19/17 17:00 Last Admin: 02/17/17 17:31 Dose: 40 mg Prednisone (Deltasone -) 20 mg PO DAILY [facility] Stop: 02/23/17 11:00 - Objective Vital Signs: Vital Signs Temperature 97.9 F 02/18/17 09:04 Pulse Rate 80 02/18/17 09:04 Respiratory Rate 18 02/18/17 09:04 Blood Pressure 146/96 02/18/17 09:04 O2 Sat by Pulse Oximetry (%) 99 02/17/17 09:32 Constitutional: Yes: No Distress, Calm Cardiovascular: Yes: Regular Rate and Rhythm Respiratory: Yes: Regular, CTA Bilaterally Gastrointestinal: Yes: Normal Bowel Sounds, Soft Musculoskeletal: Yes: Other Extremities: Yes: Other Integumentary: Yes: Other Wound/Incision: Yes: Dressing Dry and Intact, Other Neurological: Yes: Alert, Oriented Psychiatric: Yes: Alert, Oriented Labs: CBC, BMP 02/15/17 05:55 02/15/17 05:55 INR, PTT INR 1.09 (0.82-1.09) 02/14/17 13:01 Assessment/Plan dagmar List - Problems (1) Cellulitis Assessment/Plan: Code(s): L03.90 - CELLULITIS, UNSPECIFIED (2) HTN (hypertension) Code(s): I10 - ESSENTIAL (PRIMARY) HYPERTENSION wound infection plan continue abx patient will need iv for a total of 2 weeks wound cx noted multiple organisms including mrsa awaitng for sensititivites for all organisms rest continue current mgmt might need a picc line for couple of days as will need zosyn as patient does not have oral choice of abx
[2017-02-18] MEDS: amLODIPine BESYLATE 5 MG TABLET (FP) PO SCH (09:44)
[2017-02-18] MEDS: LOSARTAN 50MG/HCTZ 12.5MG 1 TAB (FP) PO SCH (09:44)
[2017-02-18] MEDS: NICOTINE 21 MG/24 HOURS TOPICAL PATCH TD SCH (09:44)
[2017-02-18] MEDS: HEPARIN NA (PORCINE) 5,000 UNITS/ML 1ML VIAL SQ SCH ×2 (09:44→21:59)
[2017-02-18] MEDS: predniSONE 20 MG TABLET (UD) PO SCH (09:47)
[2017-02-18] MEDS: FLUOCINONIDE 0.05% TOP OINT (15 GM TUBE) TP SCH (09:49)
--- NOTE | 2017-02-18 11:53 | PN ---
Progress Note, Physician History of Present Illness: No new complaints - Current Medication List Current Medications: Active Medications Amlodipine Besylate (Norvasc -) 5 mg PO DAILY [facility] Last Admin: 02/18/17 09:44 Dose: 5 mg Diphenhydramine HCl (Benadryl -) 25 mg PO Q6H PRN PRN Reason: ITCHINESS Last Admin: 02/16/17 21:21 Dose: 25 mg Fluocinonide (Lidex 0.05% Ointment -) 1 applic TP DAILY [facility] Last Admin: 02/18/17 09:49 Dose: 1 applic HCTZ/Losartan Potassium (Hyzaar -) 1 tab PO DAILY [facility] Last Admin: 02/18/17 09:44 Dose: 1 tab Heparin Sodium (Porcine) (Heparin -) 5,000 unit SQ BID [facility] Last Admin: 02/18/17 09:44 Dose: 5,000 unit Clindamycin Phosphate (Cleocin 300 Mg Premix Ivpb) 50 mls @ 100 mls/hr IVPB Q8H -IV [facility] Last Admin: 02/18/17 10:42 Dose: 100 mls/hr Piperacillin Sod/Tazobactam Sod (Zosyn 3.375gm Ivpb (Pre-Docked)) 50 mls @ 100 mls/hr IVPB Q8H-IV [facility] PRN Reason: Protocol Last Admin: 02/18/17 09:44 Dose: 100 mls/hr Ketorolac Tromethamine (Toradol Injection -) 30 mg IVPB Q6H PRN PRN Reason: PAIN Stop: 02/19/17 23:43 Last Admin: 02/16/17 23:12 Dose: 30 mg Nicotine (Nicoderm Patch -) 21 mg TD DAILY [facility] Last Admin: 02/18/17 09:44 Dose: Not Given Nystatin (Mycostatin Cream -) 1 applic TP Q6HPO [facility] Last Admin: 02/18/17 05:31 Dose: 1 applic Prednisone (Deltasone -) 30 mg PO DAILY [facility] Stop: 02/21/17 11:00 Prednisone (Deltasone -) 10 mg PO DAILY [facility] Stop: 02/25/17 11:00 Prednisone (Deltasone -) 40 mg PO DAILY [facility] Stop: 02/19/17 17:00 Last Admin: 02/18/17 09:47 Dose: 40 mg Prednisone (Deltasone -) 20 mg PO DAILY [facility] Stop: 02/23/17 11:00 - Objective Vital Signs: Vital Signs Temperature 97.9 F 02/18/17 09:04 Pulse Rate 80 02/18/17 09:04 Respiratory Rate 18 02/18/17 09:04 Blood Pressure 146/96 02/18/17 09:04 O2 Sat by Pulse Oximetry (%) 99 02/17/17 09:32 Constitutional: Yes: Well Nourished Eyes: Yes: WNL HENT: Yes: WNL Neck: Yes: WNL Cardiovascular: Yes: WNL, Regular Rate and Rhythm Respiratory: Yes: WNL, Regular, CTA Bilaterally Gastrointestinal: Yes: WNL, Normal Bowel Sounds, Soft Extremities: Yes: Other ((+) skin peeling off w/ erythema) Labs: CBC, BMP 02/15/17 05:55 02/15/17 05:55 INR, PTT INR 1.09 (0.82-1.09) 02/14/17 13:01 Problem List - Problems (1) Cellulitis Assessment/Plan: Cont IV vanco//zosyn/clinda Cont wound care Wound culture w/ multiple organisims Code(s): L03.90 - CELLULITIS, UNSPECIFIED (2) HTN (hypertension) Assessment/Plan: Cont antihypertensives BP stable Code(s): I10 - ESSENTIAL (PRIMARY) HYPERTENSION
[2017-02-19] MEDS ORDERED: PT OWN MED DRAWER 7, Y5N ONE ×3 (01:24→17:24)
[2017-02-19] MEDS: CLINDAMYCIN 300 MG PREMIX IVPB 50 ML IVPB SCH ×3 (01:26→17:34)
[2017-02-19] MEDS: PIPERACILLIN/TAZOB 3.375 GM 50 ML IVPB SCH ×3 (02:11→17:34)
[2017-02-19] MEDS: NYSTATIN 100,000 UNIT/GM TOPICAL CREAM 15 GM TUBE TP SCH ×3 (05:46→17:34)
[2017-02-19] MEDS: LOSARTAN 50MG/HCTZ 12.5MG 1 TAB (FP) PO SCH (10:03)
[2017-02-19] MEDS: predniSONE 20 MG TABLET (UD) PO SCH (10:03)
[2017-02-19] MEDS: amLODIPine BESYLATE 5 MG TABLET (FP) PO SCH (10:03)
[2017-02-19] MEDS: NICOTINE 21 MG/24 HOURS TOPICAL PATCH TD SCH (10:04)
[2017-02-19] MEDS: HEPARIN NA (PORCINE) 5,000 UNITS/ML 1ML VIAL SQ SCH ×2 (10:04→21:39)
[2017-02-19] MEDS: FLUOCINONIDE 0.05% TOP OINT (15 GM TUBE) TP SCH (10:05)
--- NOTE | 2017-02-19 10:32 | PN ---
Progress Note, Physician History of Present Illness: stable no new issues wounds healing well - Current Medication List Current Medications: Active Medications Amlodipine Besylate (Norvasc -) 5 mg PO DAILY [facility] Last Admin: 02/19/17 10:03 Dose: 5 mg Diphenhydramine HCl (Benadryl -) 25 mg PO Q6H PRN PRN Reason: ITCHINESS Last Admin: 02/16/17 21:21 Dose: 25 mg Fluocinonide (Lidex 0.05% Ointment -) 1 applic TP DAILY [facility] Last Admin: 02/19/17 10:05 Dose: 1 applic HCTZ/Losartan Potassium (Hyzaar -) 1 tab PO DAILY [facility] Last Admin: 02/19/17 10:03 Dose: 1 tab Heparin Sodium (Porcine) (Heparin -) 5,000 unit SQ BID [facility] Last Admin: 02/19/17 10:04 Dose: 5,000 unit Clindamycin Phosphate (Cleocin 300 Mg Premix Ivpb) 50 mls @ 100 mls/hr IVPB Q8H -IV [facility] Last Admin: 02/19/17 10:04 Dose: 100 mls/hr Piperacillin Sod/Tazobactam Sod (Zosyn 3.375gm Ivpb (Pre-Docked)) 50 mls @ 100 mls/hr IVPB Q8H-IV [facility] PRN Reason: Protocol Last Admin: 02/19/17 10:04 Dose: 100 mls/hr Ketorolac Tromethamine (Toradol Injection -) 30 mg IVPB Q6H PRN PRN Reason: PAIN Stop: 02/19/17 23:43 Last Admin: 02/16/17 23:12 Dose: 30 mg Nicotine (Nicoderm Patch -) 21 mg TD DAILY [facility] Last Admin: 02/19/17 10:04 Dose: Not Given Nystatin (Mycostatin Cream -) 1 applic TP Q6HPO [facility] Last Admin: 02/19/17 05:46 Dose: 1 applic Prednisone (Deltasone -) 30 mg PO DAILY [facility] Stop: 02/21/17 11:00 Prednisone (Deltasone -) 10 mg PO DAILY [facility] Stop: 02/25/17 11:00 Prednisone (Deltasone -) 40 mg PO DAILY [facility] Stop: 02/19/17 17:00 Last Admin: 02/19/17 10:03 Dose: 40 mg Prednisone (Deltasone -) 20 mg PO DAILY [facility] Stop: 02/23/17 11:00 - Objective Vital Signs: Vital Signs Temperature 97.8 F 02/19/17 08:00 Pulse Rate 80 02/19/17 08:00 Respiratory Rate 18 02/19/17 08:00 Blood Pressure 136/67 02/19/17 08:00 O2 Sat by Pulse Oximetry (%) 98 02/18/17 21:00 Constitutional: Yes: No Distress, Calm Cardiovascular: Yes: Regular Rate and Rhythm Respiratory: Yes: Regular, CTA Bilaterally Gastrointestinal: Yes: Normal Bowel Sounds, Soft Musculoskeletal: Yes: Other Extremities: Yes: Other Wound/Incision: Yes: Dressing Dry and Intact Neurological: Yes: Alert, Oriented Psychiatric: Yes: Alert, Oriented Labs: CBC, BMP 02/15/17 05:55 02/15/17 05:55 INR, PTT INR 1.09 (0.82-1.09) 02/14/17 13:01 Assessment/Plan brad List - Problems (1) Cellulitis Assessment/Plan: Code(s): L03.90 - CELLULITIS, UNSPECIFIED (2) HTN (hypertension) Code(s): I10 - ESSENTIAL (PRIMARY) HYPERTENSION wound infection mrsa wound plan continue abx patient will need iv for a total of 2 weeks sensitivities noted will switch to oral clinda tomorrow
--- NOTE | 2017-02-19 21:09 | PN ---
Progress Note, Physician History of Present Illness: No new complaints - Current Medication List Current Medications: Active Medications Amlodipine Besylate (Norvasc -) 5 mg PO DAILY [facility] Last Admin: 02/19/17 10:03 Dose: 5 mg Diphenhydramine HCl (Benadryl -) 25 mg PO Q6H PRN PRN Reason: ITCHINESS Last Admin: 02/16/17 21:21 Dose: 25 mg Fluocinonide (Lidex 0.05% Ointment -) 1 applic TP DAILY [facility] Last Admin: 02/19/17 10:05 Dose: 1 applic HCTZ/Losartan Potassium (Hyzaar -) 1 tab PO DAILY [facility] Last Admin: 02/19/17 10:03 Dose: 1 tab Heparin Sodium (Porcine) (Heparin -) 5,000 unit SQ BID [facility] Last Admin: 02/19/17 10:04 Dose: 5,000 unit Clindamycin Phosphate (Cleocin 300 Mg Premix Ivpb) 50 mls @ 100 mls/hr IVPB Q8H -IV [facility] Last Admin: 02/19/17 17:34 Dose: 100 mls/hr Piperacillin Sod/Tazobactam Sod (Zosyn 3.375gm Ivpb (Pre-Docked)) 50 mls @ 100 mls/hr IVPB Q8H-IV [facility] PRN Reason: Protocol Last Admin: 02/19/17 17:34 Dose: 100 mls/hr Ketorolac Tromethamine (Toradol Injection -) 30 mg IVPB Q6H PRN PRN Reason: PAIN Stop: 02/19/17 23:43 Last Admin: 02/16/17 23:12 Dose: 30 mg Nicotine (Nicoderm Patch -) 21 mg TD DAILY [facility] Last Admin: 02/19/17 10:04 Dose: Not Given Nystatin (Mycostatin Cream -) 1 applic TP Q6HPO [facility] Last Admin: 02/19/17 17:34 Dose: 1 applic Prednisone (Deltasone -) 30 mg PO DAILY [facility] Stop: 02/21/17 11:00 Prednisone (Deltasone -) 10 mg PO DAILY [facility] Stop: 02/25/17 11:00 Prednisone (Deltasone -) 20 mg PO DAILY [facility] Stop: 02/23/17 11:00 - Objective Vital Signs: Vital Signs Temperature 98.1 F 02/19/17 14:13 Pulse Rate 61 02/19/17 14:13 Respiratory Rate 18 02/19/17 08:00 Blood Pressure 142/86 02/19/17 14:13 O2 Sat by Pulse Oximetry (%) 99 02/19/17 09:00 Constitutional: Yes: Well Nourished Eyes: Yes: WNL HENT: Yes: WNL Neck: Yes: WNL Cardiovascular: Yes: WNL Respiratory: Yes: WNL Gastrointestinal: Yes: WNL, Normal Bowel Sounds Extremities: Yes: Other ((+) b/l feet in dressing) Labs: CBC, BMP 02/15/17 05:55 02/15/17 05:55 INR, PTT INR 1.09 (0.82-1.09) 02/14/17 13:01 Problem List - Problems (1) Cellulitis Assessment/Plan: Cont IV vanco//zosyn/clinda Cont wound care Wound culture w/ multiple organisims Code(s): L03.90 - CELLULITIS, UNSPECIFIED (2) HTN (hypertension) Assessment/Plan: Cont antihypertensives BP stable Code(s): I10 - ESSENTIAL (PRIMARY) HYPERTENSION
[2017-02-20] MEDS: NYSTATIN 100,000 UNIT/GM TOPICAL CREAM 15 GM TUBE TP SCH ×4 (00:45→18:09)
[2017-02-20] MEDS: PIPERACILLIN/TAZOB 3.375 GM 50 ML IVPB SCH ×3 (01:06→17:49)
[2017-02-20] MEDS: CLINDAMYCIN 300 MG PREMIX IVPB 50 ML IVPB SCH ×3 (02:09→17:48)
[2017-02-20] MEDS ORDERED: PT OWN MED DRAWER 7, Y5N ONE ×2 (10:41→17:46)
[2017-02-20] MEDS: amLODIPine BESYLATE 5 MG TABLET (FP) PO SCH (10:52)
[2017-02-20] MEDS: predniSONE 10 MG TABLET (UD) PO SCH (10:52)
[2017-02-20] MEDS: NICOTINE 21 MG/24 HOURS TOPICAL PATCH TD SCH (10:52)
[2017-02-20] MEDS: LOSARTAN 50MG/HCTZ 12.5MG 1 TAB (FP) PO SCH (10:52)
[2017-02-20] MEDS: HEPARIN NA (PORCINE) 5,000 UNITS/ML 1ML VIAL SQ SCH ×2 (10:53→21:28)
[2017-02-20] MEDS: FLUOCINONIDE 0.05% TOP OINT (15 GM TUBE) TP SCH (10:53)
--- NOTE | 2017-02-20 15:04 | PN ---
Progress Note, Physician History of Present Illness: No new complaints - Current Medication List Current Medications: Active Medications Amlodipine Besylate (Norvasc -) 5 mg PO DAILY [facility] Last Admin: 02/20/17 10:52 Dose: 5 mg Diphenhydramine HCl (Benadryl -) 25 mg PO Q6H PRN PRN Reason: ITCHINESS Last Admin: 02/16/17 21:21 Dose: 25 mg Fluocinonide (Lidex 0.05% Ointment -) 1 applic TP DAILY [facility] Last Admin: 02/20/17 10:53 Dose: 1 applic HCTZ/Losartan Potassium (Hyzaar -) 1 tab PO DAILY [facility] Last Admin: 02/20/17 10:52 Dose: 1 tab Heparin Sodium (Porcine) (Heparin -) 5,000 unit SQ BID [facility] Last Admin: 02/20/17 10:53 Dose: 5,000 unit Clindamycin Phosphate (Cleocin 300 Mg Premix Ivpb) 50 mls @ 100 mls/hr IVPB Q8H -IV [facility] Last Admin: 02/20/17 10:52 Dose: 100 mls/hr Piperacillin Sod/Tazobactam Sod (Zosyn 3.375gm Ivpb (Pre-Docked)) 50 mls @ 100 mls/hr IVPB Q8H-IV [facility] PRN Reason: Protocol Last Admin: 02/20/17 10:52 Dose: 100 mls/hr Nicotine (Nicoderm Patch -) 21 mg TD DAILY [facility] Last Admin: 02/20/17 10:52 Dose: Not Given Nystatin (Mycostatin Cream -) 1 applic TP Q6HPO [facility] Last Admin: 02/20/17 11:13 Dose: 1 applic Prednisone (Deltasone -) 30 mg PO DAILY [facility] Stop: 02/21/17 11:00 Last Admin: 02/20/17 10:52 Dose: 30 mg Prednisone (Deltasone -) 10 mg PO DAILY [facility] Stop: 02/25/17 11:00 Prednisone (Deltasone -) 20 mg PO DAILY [facility] Stop: 02/23/17 11:00 - Objective Vital Signs: Vital Signs Temperature 98.1 F 02/20/17 14:00 Pulse Rate 71 02/20/17 08:00 Respiratory Rate 18 02/20/17 08:00 Blood Pressure 133/88 02/20/17 08:00 O2 Sat by Pulse Oximetry (%) 100 02/20/17 09:00 Constitutional: Yes: Well Nourished Eyes: Yes: WNL HENT: Yes: WNL Neck: Yes: WNL Cardiovascular: Yes: WNL Respiratory: Yes: WNL, Regular, CTA Bilaterally Gastrointestinal: Yes: WNL, Normal Bowel Sounds, Soft Extremities: Yes: Erythema Labs: CBC, BMP 02/15/17 05:55 02/15/17 05:55 INR, PTT INR 1.09 (0.82-1.09) 02/14/17 13:01 Problem List - Problems (1) Cellulitis Code(s): L03.90 - CELLULITIS, UNSPECIFIED (2) HTN (hypertension) Code(s): I10 - ESSENTIAL (PRIMARY) HYPERTENSION
--- NOTE | 2017-02-20 16:11 | PN ---
Progress Note, Physician History of Present Illness: stable no new issues wounds healing well picc line - Current Medication List Current Medications: Active Medications Amlodipine Besylate (Norvasc -) 5 mg PO DAILY [facility] Last Admin: 02/20/17 10:52 Dose: 5 mg Diphenhydramine HCl (Benadryl -) 25 mg PO Q6H PRN PRN Reason: ITCHINESS Last Admin: 02/16/17 21:21 Dose: 25 mg Fluocinonide (Lidex 0.05% Ointment -) 1 applic TP DAILY [facility] Last Admin: 02/20/17 10:53 Dose: 1 applic HCTZ/Losartan Potassium (Hyzaar -) 1 tab PO DAILY [facility] Last Admin: 02/20/17 10:52 Dose: 1 tab Heparin Sodium (Porcine) (Heparin -) 5,000 unit SQ BID [facility] Last Admin: 02/20/17 10:53 Dose: 5,000 unit Clindamycin Phosphate (Cleocin 300 Mg Premix Ivpb) 50 mls @ 100 mls/hr IVPB Q8H -IV [facility] Last Admin: 02/20/17 10:52 Dose: 100 mls/hr Piperacillin Sod/Tazobactam Sod (Zosyn 3.375gm Ivpb (Pre-Docked)) 50 mls @ 100 mls/hr IVPB Q8H-IV [facility] PRN Reason: Protocol Last Admin: 02/20/17 10:52 Dose: 100 mls/hr Nicotine (Nicoderm Patch -) 21 mg TD DAILY [facility] Last Admin: 02/20/17 10:52 Dose: Not Given Nystatin (Mycostatin Cream -) 1 applic TP Q6HPO [facility] Last Admin: 02/20/17 11:13 Dose: 1 applic Prednisone (Deltasone -) 30 mg PO DAILY [facility] Stop: 02/21/17 11:00 Last Admin: 02/20/17 10:52 Dose: 30 mg Prednisone (Deltasone -) 10 mg PO DAILY [facility] Stop: 02/25/17 11:00 Prednisone (Deltasone -) 20 mg PO DAILY [facility] Stop: 02/23/17 11:00 - Objective Vital Signs: Vital Signs Temperature 98.1 F 02/20/17 14:00 Pulse Rate 71 02/20/17 08:00 Respiratory Rate 18 02/20/17 08:00 Blood Pressure 133/88 02/20/17 08:00 O2 Sat by Pulse Oximetry (%) 100 02/20/17 09:00 Constitutional: Yes: No Distress, Calm Cardiovascular: Yes: Regular Rate and Rhythm Respiratory: Yes: Regular, CTA Bilaterally Gastrointestinal: Yes: Normal Bowel Sounds, Soft Musculoskeletal: Yes: Other Extremities: Yes: Other Integumentary: Yes: Other Wound/Incision: Yes: Dressing Dry and Intact Neurological: Yes: Alert, Oriented Psychiatric: Yes: Alert, Oriented Labs: CBC, BMP 02/15/17 05:55 02/15/17 05:55 INR, PTT INR 1.09 (0.82-1.09) 02/14/17 13:01 Assessment/Plan roble List - Problems (1) Cellulitis Assessment/Plan: Code(s): L03.90 - CELLULITIS, UNSPECIFIED (2) HTN (hypertension) Code(s): I10 - ESSENTIAL (PRIMARY) HYPERTENSION wound infection mrsa wound plan continue abx patient will need iv for a total of 2 weeks sensitivities noted conitnue oral clinda
[2017-02-20] MEDS ORDERED: PICC LINE 8 ML FLUSH PROTOCOL IVPUSH PRN (19:18)
--- NOTE | 2017-02-20 19:18 | PN ---
Progress Note, Physician History of Present Illness: No new complaints Pt is aware that she will need to self administer antibxs at home and states that she has a sister that will help her - Current Medication List Current Medications: Active Medications Amlodipine Besylate (Norvasc -) 5 mg PO DAILY [facility] Last Admin: 02/20/17 10:52 Dose: 5 mg Diphenhydramine HCl (Benadryl -) 25 mg PO Q6H PRN PRN Reason: ITCHINESS Last Admin: 02/16/17 21:21 Dose: 25 mg Fluocinonide (Lidex 0.05% Ointment -) 1 applic TP DAILY [facility] Last Admin: 02/20/17 10:53 Dose: 1 applic HCTZ/Losartan Potassium (Hyzaar -) 1 tab PO DAILY [facility] Last Admin: 02/20/17 10:52 Dose: 1 tab Heparin Sodium (Porcine) (Heparin -) 5,000 unit SQ BID [facility] Last Admin: 02/20/17 10:53 Dose: 5,000 unit Clindamycin Phosphate (Cleocin 300 Mg Premix Ivpb) 50 mls @ 100 mls/hr IVPB Q8H -IV [facility] Last Admin: 02/20/17 17:48 Dose: 100 mls/hr Piperacillin Sod/Tazobactam Sod (Zosyn 3.375gm Ivpb (Pre-Docked)) 50 mls @ 100 mls/hr IVPB Q8H-IV [facility] PRN Reason: Protocol Last Admin: 02/20/17 17:49 Dose: 100 mls/hr Miconazole Nitrate (Monistat-7 Vaginal Cream -) 1 applic VG HS [facility] Stop: 02/26/17 22:01 Nicotine (Nicoderm Patch -) 21 mg TD DAILY [facility] Last Admin: 02/20/17 10:52 Dose: Not Given Nystatin (Mycostatin Cream -) 1 applic TP Q6HPO [facility] Last Admin: 02/20/17 18:09 Dose: 1 applic Prednisone (Deltasone -) 30 mg PO DAILY [facility] Stop: 02/21/17 11:00 Last Admin: 02/20/17 10:52 Dose: 30 mg Prednisone (Deltasone -) 10 mg PO DAILY [facility] Stop: 02/25/17 11:00 Prednisone (Deltasone -) 20 mg PO DAILY [facility] Stop: 02/23/17 11:00 - Objective Vital Signs: Vital Signs Temperature 97.1 F L 02/20/17 18:00 Pulse Rate 64 02/20/17 18:00 Respiratory Rate 20 02/20/17 18:00 Blood Pressure 143/86 02/20/17 18:00 O2 Sat by Pulse Oximetry (%) 100 02/20/17 09:00 Constitutional: Yes: Calm Eyes: Yes: WNL HENT: Yes: WNL Neck: Yes: WNL Cardiovascular: Yes: WNL, Regular Rate and Rhythm Respiratory: Yes: WNL, Regular, CTA Bilaterally Gastrointestinal: Yes: WNL, Normal Bowel Sounds, Soft Extremities: Yes: Other (B/L feet in dressings) Labs: CBC, BMP 02/15/17 05:55 02/15/17 05:55 INR, PTT INR 1.09 (0.82-1.09) 02/14/17 13:01 Problem List - Problems (1) Cellulitis Assessment/Plan: Cont IV vanco//zosyn/clinda Cont wound care Wound culture w/ multiple organisims Pt for PICC line placement in am Antibxs as per ID Will need for 2 weeks Code(s): L03.90 - CELLULITIS, UNSPECIFIED (2) HTN (hypertension) Assessment/Plan: Cont antihypertensives BP stable Code(s): I10 - ESSENTIAL (PRIMARY) HYPERTENSION
[2017-02-20] MEDS: diphenhydrAMINE HCL 25 MG CAPSULE (FP) PO PRN (21:32)
[2017-02-20] MEDS ORDERED: MICONAZOLE NITRATE 2% VAGINAL CREAM 45 GM TUBE VG SCH (22:00)
[2017-02-21] MEDS ORDERED: PT OWN MED DRAWER 7, Y5N ONE ×2 (01:14→09:04)
[2017-02-21] MEDS: CLINDAMYCIN 300 MG PREMIX IVPB 50 ML IVPB SCH ×2 (01:18→11:03)
[2017-02-21] MEDS: PIPERACILLIN/TAZOB 3.375 GM 50 ML IVPB SCH ×2 (02:08→10:56)
[2017-02-21] MEDS: NYSTATIN 100,000 UNIT/GM TOPICAL CREAM 15 GM TUBE TP SCH ×3 (06:00→11:50)
[2017-02-21 06:01] VITALS: TEMP 98
[2017-02-21 08:58] VITALS: BP 153/76; PULSE 71
[2017-02-21] MEDS: amLODIPine BESYLATE 5 MG TABLET (FP) PO SCH (09:06)
[2017-02-21] MEDS: predniSONE 10 MG TABLET (UD) PO SCH (09:06)
[2017-02-21] MEDS: LOSARTAN 50MG/HCTZ 12.5MG 1 TAB (FP) PO SCH (09:06)
[2017-02-21] MEDS: HEPARIN NA (PORCINE) 5,000 UNITS/ML 1ML VIAL SQ SCH (09:09)
[2017-02-21] MEDS: NICOTINE 21 MG/24 HOURS TOPICAL PATCH TD SCH (09:09)
[2017-02-21] MEDS: FLUOCINONIDE 0.05% TOP OINT (15 GM TUBE) TP SCH (10:00)
[2017-02-22] MEDS ORDERED: predniSONE 20 MG TABLET (UD) PO SCH (10:00)
[2017-02-24] MEDS ORDERED: predniSONE 10 MG TABLET (UD) PO SCH (10:00)
== END 2017-02-21 13:14 | disposition home or self-care (01) | DRG 383 ==
LOC: JER 11:31 → JERBED 15:50 → J6S 18:16
PROVIDERS: ADMIT Internal Medicine; ATTEND Internal Medicine
PROC: 02HV33Z Insertion of Infusion Device into Superior Vena Cava, Percutaneous Approach (ICD-10-PCS; principal; 2017-02-21)
PROC: B548ZZA Ultrasonography of Superior Vena Cava, Guidance (ICD-10-PCS; 2017-02-21)
DX: L03.116 Cellulitis of left lower limb (principal); L03.115 Cellulitis of right lower limb; B96.5 Pseudomonas (aeruginosa) (mallei) (pseudomallei) as the cause of diseases classified elsewhere; B95.62 Methicillin resistant Staphylococcus aureus infection as the cause of diseases classified elsewhere; I10 Essential (primary) hypertension; F17.210 Nicotine dependence, cigarettes, uncomplicated
CPT/HCPCS: 36415; 36569; 73630-TC-LT; 73630-TC-RT; 77001-TC; 80053; 84703; 85025; 85610; 85651; 86140; 86850; 86900; 86901; 87040; 87070; 87077; 87186; 87205; 99283-25; C1751; J1644

== ENCOUNTER 2017-03-17 02:23 | Inpatient (IN) | payer OTHER ==
--- NOTE | 2017-03-17 02:30 | PDOC ---
History of Present Illness - General History Source: Patient Exam Limitations: No Limitations - History of Present Illness Initial Comments: 03/17/17 03:29 The patient is a 41-year-old female, with a significant past medical history of HTN, who presents to the ED with rash to hands and feet. Patient was admitted to the hospital on 02/14/17 for skin infection to bilateral feet and ankles. Pt was discharged on 02/21/17. Originally pt was diagnosed with tinea pedis with super infection of feet and ankles. At the time, it appeared moist and weepy. This time skin appears much continuous drier operator and flaky and it is now very painful and itchy. Same type of infection on her feet is now on the palms of her hands. Pt reports that she complaint with her medication. The pt denies having any other symptoms at this time. <Radha Osorio - Last Filed: 03/17/17 05:36> - General History Source: Patient <Sivakumar Lopez - Last Filed: 03/20/17 20:19> - General Stated Complaint: SKIN INFECTION Time Seen by Provider: 03/17/17 02:30 Past History <Radha Osorio - Last Filed: 03/17/17 05:36> - Past Medical History HTN: Yes Suicide Attempt (Hx): No - Psycho/Social/Smoking Cessation Hx Anxiety: No Suicidal Ideation: No Smoking History: Current every day smoker Have you smoked in the past 12 months: Yes Number of Cigarettes Smoked Daily: 20 'Breaking Loose' booklet given: 02/14/17 Hx Alcohol Use: No Drug/Substance Use Hx: No Substance Use Type: None <Sivakumar Lopez - Last Filed: 03/20/17 20:19> - Past Medical History Allergies/Adverse Reactions: Allergies Allergy/AdvReac Type Severity Reaction Status Date / Time No Known Allergies Allergy Verified 03/17/17 02:36 Home Medications: Ambulatory Orders Amlodipine Besylate [Norvasc -] 5 mg PO DAILY 02/14/17 Losartan/Hydrochlorothiazide [Losartan-Hctz 50-12.5 mg Tab] 1 each PO DAILY Clotrimazole [Antifungal] 30 gm TP DAILY 03/03/17 Clotrimazole [Antifungal] 113 gm TP BID #1 cream..g. 03/03/17 Review of Systems - Review of Systems Able to Perform ROS?: Yes Comments:: 03/17/17 03:30 CONSTITUTIONAL: Absent: fever, no chills, no fatigue EYES: Absent: visual changes ENT: Absent: ear pain, no sore throat CARDIOVASCULAR: Absent: chest pain, no palpitations RESPIRATORY: Absent: cough, no SOB GI: Absent: abdominal pain, no nausea, no vomiting, no constipation, no diarrhea GENITOURINARY: Absent: dysuria, no frequency, no hematuria MUSKULOSKELETAL: Absent: back pain, no arthralgia, no myalgia SKIN: Present: rash to feet, ankles, and hands. Absent: pallor NEURO: Absent: headache <Radha Osorio - Last Filed: 03/17/17 05:36> *Physical Exam - Vital Signs Last Vital Signs Temp Pulse Resp BP Pulse Ox 98.3 F 89 19 126/73 100 03/17/17 02:37 03/17/17 02:37 03/17/17 02:37 03/17/17 02:37 03/17/17 02:37 - Physical Exam Comments: 03/17/17 03:31 GENERAL: Well-appearing, well-nourished. No apparent distress. HEENT: Normocephalic, atraumatic. PERRL, EOM intact. CARDIOVASCULAR: Normal S1, S2. Regular rate and rhythm. PULMONARY: Clear to auscultation bilaterally. ABDOMEN: Soft, non-distended, non-tender. EXTREMITIES: Normal ROM in all four extremities. Warm, dry. +Severe desquamation of palms and soles. Worst on the feet. She has almost complete skin breakdown of her feet. It is dry and crusty with surrounding red plaques. Also has similar skin breakdown to the palms of both hands. More severe on the left than her right. NEUROLOGICAL: No focal neurological deficits. <Radha Osorio - Last Filed: 03/17/17 05:36> Heart Score/ECG Review - ECG Intrepretation Comment:: 03/17/17 05:05 EKG was reviewed by Dr. Lopez at 03:06. Impression: Normal sinus rhythm. Vent. rate: 86 bpm WI interval: 166 ms QTc: 497 ms <Radha Osorio - Last Filed: 03/17/17 05:36> ED Treatment Course - LABORATORY CBC & Chemistry Diagram: 03/17/17 03:30 03/17/17 03:30 <Radha Osorio - Last Filed: 03/17/17 05:36> - LABORATORY CBC & Chemistry Diagram: 03/17/17 03:30 03/17/17 03:30 <Sivakumar Lopez - Last Filed: 03/20/17 20:19> Medical Decision Making - Medical Decision Making 03/17/17 05:37 Dr. Contreras was paged and notified via phone service. <Radha Osorio - Last Filed: 03/17/17 05:36> - Medical Decision Making 03/20/17 20:18 Dr. Lopez: The scribe's documentation has been prepared under my direction and personally reviewed by me in its entirery. I confirm that the note above accurately reflects all work, treatment, procedures, and medical decision making performed by me. <Sivakumar Lopez - Last Filed: 03/20/17 20:19> *DC/Admit/Observation/Transfer - Attestations Scribe Attestion: 03/17/17 03:32 Documentation prepared by Radha Osorio, acting as medical terminologist for Sivakumar Lopez MD. <Radha Osorio - Last Filed: 03/17/17 05:36> - Discharge Dispostion Admit: Yes <Sivakumar Lopez - Last Filed: 03/20/17 20:19> Diagnosis at time of Disposition: Cellulitis and abscess of foot - Discharge Dispostion Disposition: AGAINST MEDICAL ADVICE Condition at time of disposition: Stable - Referrals
[2017-03-17 02:48] VITALS: TEMP 98.3; BMI 35.6
[2017-03-17 03:48] LABS: URINE APPEARANCE CLEAR; URINE BILIRUBIN NEGATIVE (NEGATIVE); URINE BLOOD NEGATIVE (NEGATIVE); URINE COLOR STRAW; URINE GLUCOSE (UA) NEGATIVE (NEGATIVE); URINE KETONE NEGATIVE (NEGATIVE); URINE LEUK ESTERASE NEGATIVE (NEGATIVE); URINE NITRITE NEGATIVE (NEGATIVE); URINE PROTEIN NEGATIVE (NEGATIVE); URINE UROBILINOGEN NEGATIVE E.U./dl (0.2-1.0)
[2017-03-17 03:49] LABS: BASOPHIL 1.1 % (0-2.0); EOSINOPHIL 5.9 % (0-4.5); MCHC 31.4 g/dl (32.0-36.0); MEAN PLT VOLUME 9.5 fl (7.5-11.1); NEUTROPHILS 60.7 % (42.8-82.8); PLATELET COUNT 244 K/MM3 (134-434); RDW 16.1 % (11.6-15.6); WHITE BLOOD COUNT 12.8 K/mm3 (4.0-10.0)
[2017-03-17 04:01] LABS: INR 1.04 (0.82-1.09); PROTHROMBIN TIME (PATIENT) 11.5 SEC (9.98-11.88)
[2017-03-17 04:12] LABS: ANION GAP 11 (8-16); CALCIUM 8.7 mg/dL (8.5-10.1); CO2 25 mmol/L (21-32); CREATININE 0.6 mg/dL (0.55-1.02); GLUCOSE,RANDOM 122 mg/dL (74-106); SGOT/AST 19 U/L (15-37); SGPT/ALT 21 U/L (12-78)
[2017-03-17 04:13] LABS: ALK PHOS 73 U/L (45-117); BILIRUBIN,TOTAL 0.3 mg/dL (0.2-1.0); TOT PROT 7.3 g/dl (6.4-8.2)
[2017-03-17 05:45] LABS: PLATELET ESTIMATE ADEQUATE (NORMAL)
[2017-03-17 08:01] VITALS: BP 118/79; PULSE 81
--- NOTE | 2017-03-17 10:26 | EKG ---
Test Reason : Blood Pressure : / mmHG Vent. Rate : 086 BPM Atrial Rate : 086 BPM P-R Int : 166 ms QRS Dur : 112 ms QT Int : 416 ms P-R-T Axes : 065 009 048 degrees QTc Int : 497 ms NORMAL SINUS RHYTHM NON-SPECIFIC INTRA-VENTRICULAR CONDUCTION DELAY ABNORMAL ECG NO PREVIOUS ECGS AVAILABLE Confirmed by SURENDRA SORENSEN MD ([id number]) on 03/17/2017 10:26:13 AM Referred By: Confirmed By:SURENDRA SORENSEN MD
[2017-03-17] MEDS ORDERED: HEPARIN NA (PORCINE) 5,000 UNITS/ML 1ML VIAL SQ SCH (22:00)
[2017-03-18] MEDS ORDERED: CLOTRIMAZOLE 1% CREAM 15 GM TUBE TP SCH (10:00)
[2017-03-18] MEDS ORDERED: amLODIPine BESYLATE 5 MG TABLET (FP) PO SCH (10:00)
[2017-03-18] MEDS ORDERED: LOSARTAN 50MG/HCTZ 12.5MG 1 TAB (FP) PO SCH (10:00)
== END 2017-03-17 16:12 | disposition left against medical advice (07) | DRG 383 ==
LOC: JER 02:23 → JERBED 04:59 → UNDOADMIN 05:27
PROVIDERS: ADMIT Internal Medicine; ATTEND Internal Medicine
DX: L03.116 Cellulitis of left lower limb (principal); L03.115 Cellulitis of right lower limb; Z72.0 Tobacco use; I10 Essential (primary) hypertension; L08.9 Local infection of the skin and subcutaneous tissue, unspecified; B35.3 Tinea pedis
CPT/HCPCS: 36415; 71010-TC; 80053; 81003; 85025; 85610; 86850; 86900; 86901; 87040; 87086; 93005; 93010; 99282-25

== ENCOUNTER 2017-03-21 10:56 | Inpatient (IN) | payer OTHER ==
[2017-03-21 11:04] VITALS: BMI 34.9
--- NOTE | 2017-03-21 11:19 | PDOC ---
History of Present Illness - General History Source: Patient Exam Limitations: No Limitations - History of Present Illness Initial Comments: CHIEF COMPLAINT: 41 y/o afebrile female with PMH HTN sent in by Dr. Gimenez for admission for MRSA skin infection. HISTORY OF PRESENT ILLNESS: The patient states she has had a skin infection that Dr. Gimenez has been treating for a while and was getting better but over the past few days has spread to her entire body. Her feet are now weeping fluid. Dr. Gimenez send her here for admission. She denies fever, n/v/d, CP, SOB. She is complaining only of itchiness. Vital signs on arrival are notable for pulse of 120. REVIEW OF SYSTEMS: GENERAL/CONSTITUTIONAL: No fever/chills. No weakness. No weight change. HEAD, EYES, EARS, NOSE AND THROAT: No change in vision. No ear pain or discharge. No sore throat. CARDIOVASCULAR: No chest pain or shortness of breath. RESPIRATORY: No cough, wheezing, or hemoptysis. GASTROINTESTINAL: no abd pain, nausea, vomiting, diarrhea. GENITOURINARY: No dysuria, frequency, or change in urination. MUSCULOSKELETAL: +fluid draining from feet. No neck or back pain. SKIN: +overall body rash that is itchy. NEUROLOGIC: No headache, vertigo, loss of consciousness, or loss of sensation. PHYSICAL EXAM: VITAL_SIGNS: within normal limits GENERAL_APPEARANCE: alert, cooperative, no obvious discomfort. MENTAL_STATUS: speech clear, oriented X 3, responds appropriately to questions. NEURO: motor intact and sensory intact in injured extremity. EXTREMITIES: good pulse in injured extremity. Both feet are covered and bandages are soaked with purulent discharge. SKIN: Raised skin colored rash on entire body. <Anna Campoverde - Last Filed: 03/21/17 12:11> <Marla Mcneal - Last Filed: 03/24/17 08:48> - General Chief Complaint: Redness To Affected Area Stated Complaint: (PCP SENT) INFECTION Time Seen by Provider: 03/21/17 11:17 Past History - Past Medical History HTN: Yes Suicide Attempt (Hx): No Other medical history: skin infection - Immunization History Immunization Up to Date: Yes - Psycho/Social/Smoking Cessation Hx Anxiety: No Suicidal Ideation: No Smoking History: Current every day smoker Have you smoked in the past 12 months: Yes Number of Cigarettes Smoked Daily: 20 Information on smoking cessation initiated: Yes 'Breaking Loose' booklet given: 03/21/17 Hx Alcohol Use: No Drug/Substance Use Hx: No Substance Use Type: None <Anna Campoverde - Last Filed: 03/21/17 12:11> <Marla Mcneal - Last Filed: 03/24/17 08:48> - Past Medical History Allergies/Adverse Reactions: Allergies Allergy/AdvReac Type Severity Reaction Status Date / Time No Known Allergies Allergy Verified 03/21/17 10:57 Home Medications: Ambulatory Orders Amlodipine Besylate [Norvasc -] 5 mg PO DAILY 02/14/17 Losartan/Hydrochlorothiazide [Losartan-Hctz 50-12.5 mg Tab] 1 each PO DAILY Clotrimazole [Antifungal] 1 applic TP BID 03/21/17 *Physical Exam - Vital Signs Last Vital Signs Temp Pulse Resp BP Pulse Ox 98.0 F 120 H 16 0/0 03/21/17 11:00 03/21/17 11:00 03/21/17 11:00 03/21/17 11:00 <Anna Campoverde - Last Filed: 03/21/17 12:11> - Vital Signs Last Vital Signs Temp Pulse Resp BP Pulse Ox 98.2 F 72 20 130/78 99 03/24/17 06:45 03/24/17 06:45 03/24/17 06:45 03/24/17 06:45 03/23/17 21:00 <Marla Mcneal - Last Filed: 03/24/17 08:48> ED Treatment Course - LABORATORY CBC & Chemistry Diagram: 03/24/17 06:20 03/24/17 06:20 - Medications Given in the ED: ED Medications Discontinued Medications Generic Name Dose Route Start Last Admin Trade Name Freq PRN Reason Stop Dose Admin Fluocinonide 1 applic 03/22/17 10:15 03/22/17 12:06 Lidex 0.05% Ointment - TP Not Given DAILY G[facility] Vancomycin HCl 1,000 mg/ 250 mls @ 250 mls/hr 03/21/17 12:06 03/21/17 15:48 Dextrose IVPB 03/21/17 13:05 Not Given ONCE ONE Protocol Vancomycin HCl 250 mls @ 166.667 mls/hr 03/21/17 15:45 03/21/17 16:06 Vancomycin (Pre-Docked) IVPB 03/21/17 17:14 166.667 mls/hr ONCE ONE Administration Protocol Piperacillin Sod/Tazobactam Sod 3.375 gm 03/21/17 12:07 03/21/17 12:44 Zosyn 3.375gm Ivpb (Pre-Docked) IVPB 03/21/17 12:08 3.375 gm ONCE ONE Administration Protocol <Marla Mcneal - Last Filed: 03/24/17 08:48> Medical Decision Making - Medical Decision Making A/P: 41 y/o afebrile female sent in by Dr. Gimenez for skin infection. Spoke with Dr. Gimenez and he wants patient admitted to Dr. Contreras. He states she most likely has a MRSA and Pseudomonas skin infection. he would like her started on Vanco and Zosyn. Already spoke with Dr. Contreras who accepts admission. Will do labs, blood cultures and UA prior to starting abx. The patient is aware of the plan. <Anna Campoverde - Last Filed: 03/21/17 12:11> *DC/Admit/Observation/Transfer - Discharge Dispostion Admit: Yes <Anna Campoverde - Last Filed: 03/21/17 12:11> - Attestations Physician Attestion: I reviewed the case with the mid-level practitioner and agree with the mid- level practitioner's assessment, diagnosis and disposition. <Marla Mcneal - Last Filed: 03/24/17 08:48> Diagnosis at time of Disposition: MRSA (methicillin resistant Staphylococcus aureus) colonization, Pseudomonas aeruginosa infection, MRSA (methicillin resistant Staphylococcus aureus) infection - Discharge Dispostion Condition at time of disposition: Stable
[2017-03-21] MEDS ORDERED: VANCOMYCIN 1,000 MG in DEXTROSE 5%-WATER - 250 ML IVPB ONE (12:06)
[2017-03-21] MEDS ORDERED: PIPERACILLIN/TAZOB 3.375 GM/50 ML PRE-DOCKED IVPB ONE (12:07)
[2017-03-21] MEDS ORDERED: PIPERACILLIN/TAZOB 3.375 GM 50 ML IVPB ONE (12:21)
[2017-03-21] MEDS ORDERED: VANCOMYCIN 1 GRAM (PRE-DOCKED) 250 ML IVPB ONE ×2 (12:21→15:45)
[2017-03-21 12:43] LABS: BASOPHIL 0.6 % (0-2.0); EOSINOPHIL 2.6 % (0-4.5); MCH 27.5 pg (25.7-33.7); MCHC 32.1 g/dl (32.0-36.0); MEAN CELL VOLUME 85.7 fl (80-96); MEAN PLT VOLUME 8.6 fl (7.5-11.1); NEUTROPHILS 79.7 % (42.8-82.8); PLATELET COUNT 355 K/MM3 (134-434); RDW 15.7 % (11.6-15.6); WHITE BLOOD COUNT 21.2 K/mm3 (4.0-10.0)
[2017-03-21 13:14] LABS: ALBUMIN 2.9 g/dl (3.4-5.0); ALK PHOS 68 U/L (45-117); ANION GAP 10 (8-16); BILIRUBIN,TOTAL 0.6 mg/dL (0.2-1.0); CALCIUM 8.7 mg/dL (8.5-10.1); CO2 26 mmol/L (21-32); CREATININE 0.8 mg/dL (0.55-1.02); GLUCOSE,RANDOM 96 mg/dL (74-106); SGOT/AST 19 U/L (15-37); SGPT/ALT 18 U/L (12-78); TOT PROT 6.7 g/dl (6.4-8.2)
[2017-03-21] MEDS: PIPERACILLIN/TAZOB 3.375 GM 50 ML IVPB SCH (18:18)
[2017-03-21] MEDS: diphenhydrAMINE HCL 25 MG CAPSULE (FP) PO PRN (22:30)
[2017-03-22] MEDS: PIPERACILLIN/TAZOB 3.375 GM 50 ML IVPB SCH ×3 (02:31→20:05)
[2017-03-22 08:03] LABS: BASOPHIL 0.3 % (0-2.0); EOSINOPHIL 7.5 % (0-4.5); MCH 27.6 pg (25.7-33.7); MCHC 32.1 g/dl (32.0-36.0); MEAN CELL VOLUME 85.8 fl (80-96); MEAN PLT VOLUME 9.3 fl (7.5-11.1); NEUTROPHILS 71.3 % (42.8-82.8); PLATELET COUNT 343 K/MM3 (134-434); RDW 15.5 % (11.6-15.6); WHITE BLOOD COUNT 15.2 K/mm3 (4.0-10.0)
[2017-03-22 08:28] LABS: ANION GAP 11 (8-16); CALCIUM 8.2 mg/dL (8.5-10.1); CO2 24 mmol/L (21-32)
[2017-03-22 08:45] LABS: ALBUMIN 2.4 g/dl (3.4-5.0); ALK PHOS 60 U/L (45-117); BILIRUBIN,TOTAL 0.9 mg/dL (0.2-1.0); CREATININE 0.8 mg/dL (0.55-1.02); GLUCOSE,RANDOM 102 mg/dL (74-106); SGOT/AST 18 U/L (15-37); SGPT/ALT 17 U/L (12-78); TOT PROT 5.7 g/dl (6.4-8.2)
[2017-03-22] MEDS ORDERED: VANCOMYCIN 1,250 MG in DEXTROSE 5%-WATER - 250 ML IVPB SCH (10:00)
--- NOTE | 2017-03-22 10:13 | CONSULT ---
Consult Consult Specialty:: Dermatology - Past Medical History Cardio/Vascular: Yes: HTN - Alcohol/Substance Use Hx Alcohol Use: No - Smoking History Smoking history: Current every day smoker Have you smoked in the past 12 months: Yes Aproximately how many cigarettes per day: 20 Home Medications - Allergies Allergies/Adverse Reactions: Allergies Allergy/AdvReac Type Severity Reaction Status Date / Time No Known Allergies Allergy Verified 03/21/17 10:57 - Home Medications Home Medications: Ambulatory Orders Amlodipine Besylate [Norvasc -] 5 mg PO DAILY 02/14/17 Losartan/Hydrochlorothiazide [Losartan-Hctz 50-12.5 mg Tab] 1 each PO DAILY Clotrimazole [Antifungal] 1 applic TP BID 03/21/17 Physical Exam Vital Signs: Vital Signs Temperature 98.6 F 03/22/17 06:52 Pulse Rate 89 03/22/17 06:52 Respiratory Rate 20 03/22/17 06:52 Blood Pressure 146/92 03/22/17 06:52 O2 Sat by Pulse Oximetry (%) 100 03/21/17 21:00 Labs: CBC, BMP 03/22/17 06:30 03/22/17 06:30 Assessment/Plan Patient previously seen for generalized eczema dyshydrotic on palms and soles now complicated by a MRSA infection. patient being treated by Geophysical Manager at [address] [place] [address] Patient will follow up for treatment after MRSA treated for possible Biopsy. please apply bactroban and lidex to affected areas. application of silverdene cream to hands/ feet. Consider prednisone RX.
[2017-03-22] MEDS ORDERED: FLUOCINONIDE 0.05% TOP OINT (15 GM TUBE) TP SCH (10:15)
[2017-03-22] MEDS ORDERED: FLUOCINONIDE 0.05% TOP OINT (60 GM TUBE) TP SCH (10:53)
[2017-03-22] MEDS: ENOXAPARIN NA (PORCINE) 40 MG/0.4 ML DISP.SYRIN SQ SCH (11:23)
[2017-03-22] MEDS: diphenhydrAMINE HCL 25 MG CAPSULE (FP) PO PRN ×2 (11:23→20:26)
[2017-03-22] MEDS: amLODIPine BESYLATE 5 MG TABLET (FP) PO SCH (11:23)
[2017-03-22] MEDS: LOSARTAN 50MG/HCTZ 12.5MG 1 TAB (FP) PO SCH (11:23)
[2017-03-22] MEDS: CLOTRIMAZOLE 1% CREAM 15 GM TUBE TP SCH (11:23)
[2017-03-22] MEDS: FLUOCINONIDE 0.05% TOP OINT (15 GM TUBE) TP SCH (12:51)
--- NOTE | 2017-03-22 13:21 | CONSULT ---
Consult Consult Specialty:: infectious diseases Reason for Consultation:: mrsa wound infection,eczema,r/o fungal infection - History of Present Illness Chief Complaint: rash spreading all over the body History of Present Illness: this patient well known to me from last admission coming to the hospital because of the rash which has now spread over the abd and the hands patient on initial admisiion had been diagnosed with wound infection on the legs with mrsa and pseudomonas and patient was started on iv treatment. patient did not completet the course and picc line was removed as patient could not be traced anywhere patient came to the office and was found to ahve the rash extensively spread on her hands abd and legs had become worse patient had been seeing a physical therapy supervisor who ahd advised a cream application patient was send for admission to the hospital for iv abx and being evaluated by dermatology - History Source History Provided By: Patient Limitations to Obtaining History: No Limitations - Past Medical History Cardio/Vascular: Yes: HTN - Alcohol/Substance Use Hx Alcohol Use: No - Smoking History Smoking history: Current every day smoker Have you smoked in the past 12 months: Yes Aproximately how many cigarettes per day: 20 Home Medications - Allergies Allergies/Adverse Reactions: Allergies Allergy/AdvReac Type Severity Reaction Status Date / Time No Known Allergies Allergy Verified 03/21/17 10:57 - Home Medications Home Medications: Ambulatory Orders Amlodipine Besylate [Norvasc -] 5 mg PO DAILY 02/14/17 Losartan/Hydrochlorothiazide [Losartan-Hctz 50-12.5 mg Tab] 1 each PO DAILY Clotrimazole [Antifungal] 1 applic TP BID 03/21/17 Review of Systems - Review of Systems Constitutional: reports: Other Eyes: reports: No Symptoms HENT: reports: No Symptoms Neck: reports: No Symptoms Cardiovascular: reports: No Symptoms Respiratory: reports: No Symptoms Gastrointestinal: reports: No Symptoms Genitourinary: reports: No Symptoms Musculoskeletal: reports: Other Integumentary: reports: Eczema, Rash, Other (dehydrosis) Neurological: reports: No Symptoms Endocrine: reports: No Symptoms Hematology/Lymphatic: reports: No Symptoms Psychiatric: reports: No Symptoms Physical Exam Vital Signs: Vital Signs Temperature 99.1 F 03/22/17 10:00 Pulse Rate 102 H 03/22/17 10:00 Respiratory Rate 18 03/22/17 10:00 Blood Pressure 137/86 03/22/17 10:00 O2 Sat by Pulse Oximetry (%) 100 03/22/17 09:00 Constitutional: Yes: Calm, Mild Distress Eyes: Yes: Conjunctiva Clear HENT: Yes: Atraumatic, Normocephalic Neck: Yes: Supple, Trachea Midline Cardiovascular: Yes: Regular Rate and Rhythm Respiratory: Yes: Regular, CTA Bilaterally Gastrointestinal: Yes: Normal Bowel Sounds, Soft Musculoskeletal: Yes: Other Extremities: Yes: Other Integumentary: Yes: Rash (all over the body including hand and legs with peeling of the skin) Wound/Incision: Yes: Draining Neurological: Yes: Alert, Oriented Psychiatric: Yes: Alert, Oriented Labs: CBC, BMP 03/22/17 06:30 03/22/17 06:30 Assessment/Plan - Problems (1) Cellulitis Assessment/Plan: Code(s): L03.90 - CELLULITIS, UNSPECIFIED (2) HTN (hypertension) Code(s): I10 - ESSENTIAL (PRIMARY) HYPERTENSION fungal infection plan dermatology consult will start on marianne await for all cx rest as per primary team might need biopsy to figure out what is going on
--- NOTE | 2017-03-22 13:28 | PN ---
Progress Note, Physician History of Present Illness: patient stable dermatology note noted - Current Medication List Current Medications: Active Medications Amlodipine Besylate (Norvasc -) 5 mg PO DAILY [facility] Last Admin: 03/22/17 11:23 Dose: 5 mg Clotrimazole (Lotrimin 1% Cream -) 1 applic TP BID [facility] Last Admin: 03/22/17 11:23 Dose: 1 applic Diphenhydramine HCl (Benadryl -) 25 mg PO Q8H PRN PRN Reason: FOR ITCHING Last Admin: 03/22/17 11:23 Dose: 25 mg Enoxaparin Sodium (Lovenox -) 40 mg SQ DAILY [facility] Last Admin: 03/22/17 11:23 Dose: 40 mg Fluocinonide (Lidex 0.05% Ointment -) 1 applic TP DAILY [facility] Last Admin: 03/22/17 12:51 Dose: 1 applic HCTZ/Losartan Potassium (Hyzaar -) 1 tab PO DAILY [facility] Last Admin: 03/22/17 11:23 Dose: 1 tab Piperacillin Sod/Tazobactam Sod (Zosyn 3.375gm Ivpb (Pre-Docked)) 50 mls @ 100 mls/hr IVPB Q8H-IV GAYATHRI PRN Reason: Protocol Last Admin: 03/22/17 11:22 Dose: 100 mls/hr Vancomycin HCl 1,250 mg/ (Dextrose) 250 mls @ 166.667 mls/hr IVPB DAILY@1600 G[facility] PRN Reason: Protocol Silver Sulfadiazine (Silvadene -) 1 applic TP BID [facility] - Objective Vital Signs: Vital Signs Temperature 99.1 F 03/22/17 10:00 Pulse Rate 102 H 03/22/17 10:00 Respiratory Rate 18 03/22/17 10:00 Blood Pressure 137/86 03/22/17 10:00 O2 Sat by Pulse Oximetry (%) 100 03/22/17 09:00 Constitutional: Yes: No Distress, Calm Cardiovascular: Yes: Regular Rate and Rhythm Respiratory: Yes: Regular, CTA Bilaterally Gastrointestinal: Yes: Normal Bowel Sounds, Soft Musculoskeletal: Yes: Other Extremities: Yes: Other Integumentary: Yes: Rash (all over abd and legs and hands) Neurological: Yes: Alert, Oriented Labs: CBC, BMP 03/22/17 06:30 03/22/17 06:30 Assessment/Plan - Problems (1) Cellulitis Assessment/Plan: Code(s): L03.90 - CELLULITIS, UNSPECIFIED (2) HTN (hypertension) Code(s): I10 - ESSENTIAL (PRIMARY) HYPERTENSION fungal infection plan continue as per dermatology continue abx will send wound cx
[2017-03-22] MEDS: VANCOMYCIN 1,250 MG in DEXTROSE 5%-WATER - 250 ML IVPB SCH (17:43)
--- NOTE | 2017-03-22 22:42 | HP ---
Admitting History and Physical - Past Medical History Cardiovascular: Yes: HTN - Smoking History Smoking history: Current every day smoker Have you smoked in the past 12 months: Yes Aproximately how many cigarettes per day: 20 - Alcohol/Substance Use Hx Alcohol Use: No Home Medications - Allergies Allergies/Adverse Reactions: Allergies Allergy/AdvReac Type Severity Reaction Status Date / Time No Known Allergies Allergy Verified 03/21/17 10:57 - Home Medications Home Medications: Ambulatory Orders Amlodipine Besylate [Norvasc -] 5 mg PO DAILY 02/14/17 Losartan/Hydrochlorothiazide [Losartan-Hctz 50-12.5 mg Tab] 1 each PO DAILY Clotrimazole [Antifungal] 1 applic TP BID 03/21/17 Physical Examination Vital Signs: Vital Signs Temperature 97.7 F 03/22/17 17:32 Pulse Rate 79 03/22/17 17:32 Respiratory Rate 20 03/22/17 17:32 Blood Pressure 112/72 03/22/17 17:32 O2 Sat by Pulse Oximetry (%) 100 03/22/17 09:00 Labs: CBC, BMP 03/22/17 06:30 03/22/17 06:30
[2017-03-22] MEDS: SILVER SULFADIAZINE 1% TOP CREAM 400 GM JAR TP SCH (23:18)
[2017-03-23] MEDS: PIPERACILLIN/TAZOB 3.375 GM 50 ML IVPB SCH ×3 (01:37→18:23)
[2017-03-23] MEDS ORDERED: PT OWN MED DRAWER 7, Y5N ONE ×3 (08:31→16:46)
[2017-03-23] MEDS: CLOTRIMAZOLE 1% CREAM 15 GM TUBE TP SCH ×2 (10:27→22:05)
[2017-03-23] MEDS: amLODIPine BESYLATE 5 MG TABLET (FP) PO SCH (10:27)
[2017-03-23] MEDS: ENOXAPARIN NA (PORCINE) 40 MG/0.4 ML DISP.SYRIN SQ SCH (10:27)
[2017-03-23] MEDS: LOSARTAN 50MG/HCTZ 12.5MG 1 TAB (FP) PO SCH (10:27)
[2017-03-23] MEDS: diphenhydrAMINE HCL 25 MG CAPSULE (FP) PO PRN ×2 (10:33→20:37)
[2017-03-23] MEDS: SILVER SULFADIAZINE 1% TOP CREAM 400 GM JAR TP SCH ×2 (13:46→22:05)
[2017-03-23] MEDS: FLUOCINONIDE 0.05% TOP OINT (15 GM TUBE) TP SCH (15:53)
--- NOTE | 2017-03-23 16:30 | PN ---
Progress Note, Physician History of Present Illness: patient doing well skin status and rash has improved both of leg and hand - Current Medication List Current Medications: Active Medications Amlodipine Besylate (Norvasc -) 5 mg PO DAILY [facility] Last Admin: 03/23/17 10:27 Dose: 5 mg Clotrimazole (Lotrimin 1% Cream -) 1 applic TP BID [facility] Last Admin: 03/23/17 10:27 Dose: 1 applic Diphenhydramine HCl (Benadryl -) 25 mg PO Q8H PRN PRN Reason: FOR ITCHING Last Admin: 03/23/17 10:33 Dose: 25 mg Enoxaparin Sodium (Lovenox -) 40 mg SQ DAILY [facility] Last Admin: 03/23/17 10:27 Dose: 40 mg Fluocinonide (Lidex 0.05% Ointment -) 1 applic TP DAILY [facility] Last Admin: 03/23/17 15:53 Dose: 1 applic HCTZ/Losartan Potassium (Hyzaar -) 1 tab PO DAILY [facility] Last Admin: 03/23/17 10:27 Dose: 1 tab Piperacillin Sod/Tazobactam Sod (Zosyn 3.375gm Ivpb (Pre-Docked)) 50 mls @ 100 mls/hr IVPB Q8H-IV [facility] PRN Reason: Protocol Last Admin: 03/23/17 10:27 Dose: 100 mls/hr Vancomycin HCl 1,250 mg/ (Dextrose) 250 mls @ 166.667 mls/hr IVPB DAILY@1600 [facility] PRN Reason: Protocol Last Admin: 03/22/17 17:43 Dose: 166.667 mls/hr Silver Sulfadiazine (Silvadene -) 1 applic TP BID [facility] Last Admin: 03/23/17 13:46 Dose: 1 applic - Objective Vital Signs: Vital Signs Temperature 98.6 F 03/23/17 10:00 Pulse Rate 79 03/23/17 10:00 Respiratory Rate 20 03/23/17 10:00 Blood Pressure 130/76 03/23/17 10:00 O2 Sat by Pulse Oximetry (%) 99 03/23/17 10:00 Constitutional: Yes: No Distress, Calm Cardiovascular: Yes: Regular Rate and Rhythm Respiratory: Yes: Regular, CTA Bilaterally Gastrointestinal: Yes: Normal Bowel Sounds, Soft Musculoskeletal: Yes: Other Extremities: Yes: Other Wound/Incision: Yes: Other (wound healing skin peeling off) Neurological: Yes: Alert, Oriented Psychiatric: Yes: Alert, Oriented Labs: CBC, BMP 03/22/17 06:30 03/22/17 06:30 Assessment/Plan - Problems (1) Cellulitis Assessment/Plan: Code(s): L03.90 - CELLULITIS, UNSPECIFIED (2) HTN (hypertension) Code(s): I10 - ESSENTIAL (PRIMARY) HYPERTENSION fungal infection plan continue as per dermatology continue abx await for wound cx reports wbc decreasing will check vanco trough
[2017-03-23] MEDS: VANCOMYCIN 1,250 MG in DEXTROSE 5%-WATER - 250 ML IVPB SCH (18:23)
--- NOTE | 2017-03-23 23:53 | PN ---
Progress Note, Physician - Current Medication List Current Medications: Active Medications Amlodipine Besylate (Norvasc -) 5 mg PO DAILY [facility] Last Admin: 03/23/17 10:27 Dose: 5 mg Clotrimazole (Lotrimin 1% Cream -) 1 applic TP BID [facility] Last Admin: 03/23/17 22:05 Dose: 1 applic Diphenhydramine HCl (Benadryl -) 25 mg PO Q8H PRN PRN Reason: FOR ITCHING Last Admin: 03/23/17 20:37 Dose: 25 mg Enoxaparin Sodium (Lovenox -) 40 mg SQ DAILY [facility] Last Admin: 03/23/17 10:27 Dose: 40 mg Fluocinonide (Lidex 0.05% Ointment -) 1 applic TP DAILY [facility] Last Admin: 03/23/17 15:53 Dose: 1 applic HCTZ/Losartan Potassium (Hyzaar -) 1 tab PO DAILY [facility] Last Admin: 03/23/17 10:27 Dose: 1 tab Piperacillin Sod/Tazobactam Sod (Zosyn 3.375gm Ivpb (Pre-Docked)) 50 mls @ 100 mls/hr IVPB Q8H-IV [facility] PRN Reason: Protocol Last Admin: 03/23/17 18:23 Dose: 100 mls/hr Vancomycin HCl 1,250 mg/ (Dextrose) 250 mls @ 166.667 mls/hr IVPB DAILY@1600 [facility] PRN Reason: Protocol Last Admin: 03/23/17 18:23 Dose: 166.667 mls/hr Silver Sulfadiazine (Silvadene -) 1 applic TP BID [facility] Last Admin: 03/23/17 22:05 Dose: 1 applic - Objective Vital Signs: Vital Signs Temperature 98.2 F 03/23/17 17:05 Pulse Rate 73 03/23/17 17:05 Respiratory Rate 20 03/23/17 17:05 Blood Pressure 125/62 03/23/17 17:05 O2 Sat by Pulse Oximetry (%) 99 03/23/17 10:00 Labs: CBC, BMP 03/22/17 06:30 03/22/17 06:30
[2017-03-24] MEDS: PIPERACILLIN/TAZOB 3.375 GM 50 ML IVPB SCH ×3 (01:26→19:45)
[2017-03-24 07:51] LABS: ALBUMIN 2.3 g/dl (3.4-5.0); ANION GAP 9 (8-16); CALCIUM 7.9 mg/dL (8.5-10.1); CO2 27 mmol/L (21-32); CREATININE 0.7 mg/dL (0.55-1.02); GLUCOSE,RANDOM 93 mg/dL (74-106); SGOT/AST 13 U/L (15-37); SGPT/ALT 17 U/L (12-78)
[2017-03-24] MEDS: CLOTRIMAZOLE 1% CREAM 15 GM TUBE TP SCH ×3 (07:52→21:06)
[2017-03-24 07:53] LABS: ALK PHOS 46 U/L (45-117); BASOPHIL 0.6 % (0-2.0); BILIRUBIN,TOTAL 0.4 mg/dL (0.2-1.0); EOSINOPHIL 6.9 % (0-4.5); MCH 27.7 pg (25.7-33.7); MCHC 32.4 g/dl (32.0-36.0); MEAN CELL VOLUME 85.7 fl (80-96); MEAN PLT VOLUME 8.9 fl (7.5-11.1); PLATELET COUNT 344 K/MM3 (134-434); RDW 15.9 % (11.6-15.6); TOT PROT 5.6 g/dl (6.4-8.2); WHITE BLOOD COUNT 11.1 K/mm3 (4.0-10.0)
[2017-03-24] MEDS: LOSARTAN 50MG/HCTZ 12.5MG 1 TAB (FP) PO SCH (10:50)
[2017-03-24] MEDS: ENOXAPARIN NA (PORCINE) 40 MG/0.4 ML DISP.SYRIN SQ SCH (10:50)
[2017-03-24] MEDS: amLODIPine BESYLATE 5 MG TABLET (FP) PO SCH (10:50)
[2017-03-24] MEDS: diphenhydrAMINE HCL 25 MG CAPSULE (FP) PO PRN ×2 (10:50→20:57)
[2017-03-24] MEDS: SILVER SULFADIAZINE 1% TOP CREAM 400 GM JAR TP SCH ×2 (10:51→21:05)
[2017-03-24] MEDS: FLUOCINONIDE 0.05% TOP OINT (15 GM TUBE) TP SCH (10:52)
[2017-03-24] MEDS ORDERED: VANCOMYCIN 1,500 MG in DEXTROSE 5%-WATER - 250 ML IVPB SCH (13:04)
--- NOTE | 2017-03-24 13:04 | PN ---
Progress Note, Physician History of Present Illness: patient doing well skin status and rash has improved no complaints awaiting for final wound cx to be back - Current Medication List Current Medications: Active Medications Amlodipine Besylate (Norvasc -) 5 mg PO DAILY [facility] Last Admin: 03/24/17 10:50 Dose: 5 mg Clotrimazole (Lotrimin 1% Cream -) 1 applic TP BID [facility] Last Admin: 03/24/17 10:49 Dose: 1 applic Diphenhydramine HCl (Benadryl -) 25 mg PO Q8H PRN PRN Reason: FOR ITCHING Last Admin: 03/24/17 10:50 Dose: 25 mg Enoxaparin Sodium (Lovenox -) 40 mg SQ DAILY [facility] Last Admin: 03/24/17 10:50 Dose: 40 mg Fluconazole (Diflucan -) 100 mg PO DAILY [facility] Fluocinonide (Lidex 0.05% Ointment -) 1 applic TP DAILY [facility] Last Admin: 03/24/17 10:52 Dose: 1 applic HCTZ/Losartan Potassium (Hyzaar -) 1 tab PO DAILY [facility] Last Admin: 03/24/17 10:50 Dose: 1 tab Piperacillin Sod/Tazobactam Sod (Zosyn 3.375gm Ivpb (Pre-Docked)) 50 mls @ 100 mls/hr IVPB Q8H-IV [facility] PRN Reason: Protocol Last Admin: 03/24/17 10:49 Dose: 100 mls/hr Vancomycin HCl 1,250 mg/ (Dextrose) 250 mls @ 166.667 mls/hr IVPB DAILY@1600 [facility] PRN Reason: Protocol Last Admin: 03/23/17 18:23 Dose: 166.667 mls/hr Silver Sulfadiazine (Silvadene -) 1 applic TP BID [facility] Last Admin: 03/24/17 10:51 Dose: 1 applic - Objective Vital Signs: Vital Signs Temperature 98.7 F 03/24/17 10:00 Pulse Rate 77 03/24/17 10:00 Respiratory Rate 20 03/24/17 10:00 Blood Pressure 132/65 03/24/17 10:00 O2 Sat by Pulse Oximetry (%) 99 03/23/17 21:00 Constitutional: Yes: No Distress, Calm Cardiovascular: Yes: Regular Rate and Rhythm Respiratory: Yes: Regular, CTA Bilaterally Gastrointestinal: Yes: Normal Bowel Sounds, Soft Musculoskeletal: Yes: Other Extremities: Yes: Other Integumentary: Yes: Rash, Other Neurological: Yes: Alert, Oriented Psychiatric: Yes: Alert, Oriented Labs: CBC, BMP 03/24/17 06:20 03/24/17 06:20 Assessment/Plan - Problems (1) Cellulitis Assessment/Plan: Code(s): L03.90 - CELLULITIS, UNSPECIFIED (2) HTN (hypertension) Code(s): I10 - ESSENTIAL (PRIMARY) HYPERTENSION fungal infection plan continue as per dermatology continue abx await for wound cx reports wbc decreasing vanco trough noted also started on diflucan
[2017-03-24] MEDS: FLUCONAZOLE 100 MG TABLET (UD) PO SCH (15:16)
[2017-03-24] MEDS: VANCOMYCIN 1,500 MG in DEXTROSE 5%-WATER - 500 ML IVPB SCH (16:44)
--- NOTE | 2017-03-24 20:02 | PN ---
Progress Note, Physician - Current Medication List Current Medications: Active Medications Amlodipine Besylate (Norvasc -) 5 mg PO DAILY [facility] Last Admin: 03/24/17 10:50 Dose: 5 mg Clotrimazole (Lotrimin 1% Cream -) 1 applic TP BID [facility] Last Admin: 03/24/17 10:49 Dose: 1 applic Diphenhydramine HCl (Benadryl -) 25 mg PO Q8H PRN PRN Reason: FOR ITCHING Last Admin: 03/24/17 10:50 Dose: 25 mg Enoxaparin Sodium (Lovenox -) 40 mg SQ DAILY [facility] Last Admin: 03/24/17 10:50 Dose: 40 mg Fluconazole (Diflucan -) 100 mg PO DAILY [facility] Last Admin: 03/24/17 15:16 Dose: 100 mg Fluocinonide (Lidex 0.05% Ointment -) 1 applic TP DAILY [facility] Last Admin: 03/24/17 10:52 Dose: 1 applic HCTZ/Losartan Potassium (Hyzaar -) 1 tab PO DAILY [facility] Last Admin: 03/24/17 10:50 Dose: 1 tab Piperacillin Sod/Tazobactam Sod (Zosyn 3.375gm Ivpb (Pre-Docked)) 50 mls @ 100 mls/hr IVPB Q8H-IV [facility] PRN Reason: Protocol Last Admin: 03/24/17 19:45 Dose: 100 mls/hr Vancomycin HCl 1,500 mg/ (Dextrose) 500 mls @ 250 mls/hr IVPB DAILY@1600 [facility] PRN Reason: Protocol Last Admin: 03/24/17 16:44 Dose: 250 mls/hr Silver Sulfadiazine (Silvadene -) 1 applic TP BID [facility] Last Admin: 03/24/17 10:51 Dose: 1 applic - Objective Vital Signs: Vital Signs Temperature 98.3 F 03/24/17 17:24 Pulse Rate 65 03/24/17 17:24 Respiratory Rate 20 03/24/17 17:24 Blood Pressure 128/76 03/24/17 17:24 O2 Sat by Pulse Oximetry (%) 99 03/23/17 21:00 Labs: CBC, BMP 03/24/17 06:20 03/24/17 06:20
[2017-03-25] MEDS: PIPERACILLIN/TAZOB 3.375 GM 50 ML IVPB SCH ×3 (01:42→19:12)
[2017-03-25] MEDS: amLODIPine BESYLATE 5 MG TABLET (FP) PO SCH (10:52)
[2017-03-25] MEDS: LOSARTAN 50MG/HCTZ 12.5MG 1 TAB (FP) PO SCH (10:52)
[2017-03-25] MEDS: FLUCONAZOLE 100 MG TABLET (UD) PO SCH (10:53)
[2017-03-25] MEDS: SILVER SULFADIAZINE 1% TOP CREAM 400 GM JAR TP SCH ×2 (10:53→22:05)
[2017-03-25] MEDS: ENOXAPARIN NA (PORCINE) 40 MG/0.4 ML DISP.SYRIN SQ SCH (10:53)
[2017-03-25] MEDS: FLUOCINONIDE 0.05% TOP OINT (15 GM TUBE) TP SCH (10:54)
[2017-03-25] MEDS: CLOTRIMAZOLE 1% CREAM 15 GM TUBE TP SCH ×2 (10:54→22:00)
--- NOTE | 2017-03-25 16:20 | PN ---
Progress Note, Physician History of Present Illness: continues to improve rash drying up no complaints skin peeling - Current Medication List Current Medications: Active Medications Amlodipine Besylate (Norvasc -) 5 mg PO DAILY [facility] Last Admin: 03/25/17 10:52 Dose: 5 mg Clotrimazole (Lotrimin 1% Cream -) 1 applic TP BID [facility] Last Admin: 03/25/17 10:54 Dose: 1 applic Diphenhydramine HCl (Benadryl -) 25 mg PO Q8H PRN PRN Reason: FOR ITCHING Last Admin: 03/24/17 20:57 Dose: 25 mg Enoxaparin Sodium (Lovenox -) 40 mg SQ DAILY [facility] Last Admin: 03/25/17 10:53 Dose: 40 mg Fluconazole (Diflucan -) 100 mg PO DAILY [facility] Last Admin: 03/25/17 10:53 Dose: 100 mg Fluocinonide (Lidex 0.05% Ointment -) 1 applic TP DAILY [facility] Last Admin: 03/25/17 10:54 Dose: 1 applic HCTZ/Losartan Potassium (Hyzaar -) 1 tab PO DAILY [facility] Last Admin: 03/25/17 10:52 Dose: 1 tab Piperacillin Sod/Tazobactam Sod (Zosyn 3.375gm Ivpb (Pre-Docked)) 50 mls @ 100 mls/hr IVPB Q8H-IV [facility] PRN Reason: Protocol Last Admin: 03/25/17 10:52 Dose: 100 mls/hr Vancomycin HCl 1,500 mg/ (Dextrose) 500 mls @ 250 mls/hr IVPB DAILY@1600 [facility] PRN Reason: Protocol Last Admin: 03/24/17 16:44 Dose: 250 mls/hr Silver Sulfadiazine (Silvadene -) 1 applic TP BID [facility] Last Admin: 03/25/17 10:53 Dose: 1 applic - Objective Vital Signs: Vital Signs Temperature 99.6 F 03/25/17 09:00 Pulse Rate 70 03/25/17 09:00 Respiratory Rate 20 03/25/17 09:00 Blood Pressure 125/80 03/25/17 09:00 O2 Sat by Pulse Oximetry (%) 99 03/23/17 21:00 Constitutional: Yes: No Distress, Calm Cardiovascular: Yes: Regular Rate and Rhythm Respiratory: Yes: Regular, CTA Bilaterally Gastrointestinal: Yes: Normal Bowel Sounds, Soft Musculoskeletal: Yes: WNL Extremities: Yes: Other Integumentary: Yes: Rash (all over the body and hands and feet) Wound/Incision: Yes: Dressing Dry and Intact, Other Neurological: Yes: Alert, Oriented Psychiatric: Yes: Alert, Oriented Labs: CBC, BMP 03/24/17 06:20 03/24/17 06:20 Assessment/Plan - Problems (1) Cellulitis Assessment/Plan: Code(s): L03.90 - CELLULITIS, UNSPECIFIED (2) HTN (hypertension) Code(s): I10 - ESSENTIAL (PRIMARY) HYPERTENSION fungal infection plan continue as per dermatology continue abx await for wound cx reports once we have wound cx will change abx
[2017-03-25] MEDS ORDERED: PT OWN MED DRAWER 7, Y5N ONE (16:46)
[2017-03-25] MEDS: VANCOMYCIN 1,500 MG in DEXTROSE 5%-WATER - 500 ML IVPB SCH (16:48)
--- NOTE | 2017-03-25 19:43 | PN ---
Progress Note, Physician - Current Medication List Current Medications: Active Medications Amlodipine Besylate (Norvasc -) 5 mg PO DAILY [facility] Last Admin: 03/25/17 10:52 Dose: 5 mg Clotrimazole (Lotrimin 1% Cream -) 1 applic TP BID [facility] Last Admin: 03/25/17 10:54 Dose: 1 applic Diphenhydramine HCl (Benadryl -) 25 mg PO Q8H PRN PRN Reason: FOR ITCHING Last Admin: 03/24/17 20:57 Dose: 25 mg Enoxaparin Sodium (Lovenox -) 40 mg SQ DAILY [facility] Last Admin: 03/25/17 10:53 Dose: 40 mg Fluconazole (Diflucan -) 100 mg PO DAILY [facility] Last Admin: 03/25/17 10:53 Dose: 100 mg Fluocinonide (Lidex 0.05% Ointment -) 1 applic TP DAILY [facility] Last Admin: 03/25/17 10:54 Dose: 1 applic HCTZ/Losartan Potassium (Hyzaar -) 1 tab PO DAILY [facility] Last Admin: 03/25/17 10:52 Dose: 1 tab Piperacillin Sod/Tazobactam Sod (Zosyn 3.375gm Ivpb (Pre-Docked)) 50 mls @ 100 mls/hr IVPB Q8H-IV [facility] PRN Reason: Protocol Last Admin: 03/25/17 19:12 Dose: 100 mls/hr Vancomycin HCl 1,500 mg/ (Dextrose) 500 mls @ 250 mls/hr IVPB DAILY@1600 [facility] PRN Reason: Protocol Last Admin: 03/25/17 16:48 Dose: 250 mls/hr Silver Sulfadiazine (Silvadene -) 1 applic TP BID [facility] Last Admin: 03/25/17 10:53 Dose: 1 applic - Objective Vital Signs: Vital Signs Temperature 98.1 F 03/25/17 16:30 Pulse Rate 77 03/25/17 16:30 Respiratory Rate 20 03/25/17 16:30 Blood Pressure 133/69 03/25/17 16:30 O2 Sat by Pulse Oximetry (%) 99 03/23/17 21:00 Labs: CBC, BMP 03/24/17 06:20 03/24/17 06:20
[2017-03-26] MEDS: PIPERACILLIN/TAZOB 3.375 GM 50 ML IVPB SCH ×3 (01:54→17:57)
[2017-03-26] MEDS: LOSARTAN 50MG/HCTZ 12.5MG 1 TAB (FP) PO SCH (10:31)
[2017-03-26] MEDS: ENOXAPARIN NA (PORCINE) 40 MG/0.4 ML DISP.SYRIN SQ SCH (10:31)
[2017-03-26] MEDS: amLODIPine BESYLATE 5 MG TABLET (FP) PO SCH (10:31)
[2017-03-26] MEDS: FLUCONAZOLE 100 MG TABLET (UD) PO SCH (10:31)
[2017-03-26] MEDS: CLOTRIMAZOLE 1% CREAM 15 GM TUBE TP SCH ×2 (10:32→22:35)
[2017-03-26] MEDS: SILVER SULFADIAZINE 1% TOP CREAM 400 GM JAR TP SCH ×2 (10:32→22:35)
[2017-03-26] MEDS: FLUOCINONIDE 0.05% TOP OINT (15 GM TUBE) TP SCH (10:34)
--- NOTE | 2017-03-26 15:08 | PN ---
Progress Note, Physician History of Present Illness: continues to improve rash drying up no complaints - Current Medication List Current Medications: Active Medications Amlodipine Besylate (Norvasc -) 5 mg PO DAILY [facility] Last Admin: 03/26/17 10:31 Dose: 5 mg Clotrimazole (Lotrimin 1% Cream -) 1 applic TP BID [facility] Last Admin: 03/26/17 10:32 Dose: 1 applic Diphenhydramine HCl (Benadryl -) 25 mg PO Q8H PRN PRN Reason: FOR ITCHING Last Admin: 03/24/17 20:57 Dose: 25 mg Enoxaparin Sodium (Lovenox -) 40 mg SQ DAILY [facility] Last Admin: 03/26/17 10:31 Dose: 40 mg Fluconazole (Diflucan -) 100 mg PO DAILY [facility] Last Admin: 03/26/17 10:31 Dose: 100 mg Fluocinonide (Lidex 0.05% Ointment -) 1 applic TP DAILY [facility] Last Admin: 03/26/17 10:34 Dose: 1 applic HCTZ/Losartan Potassium (Hyzaar -) 1 tab PO DAILY [facility] Last Admin: 03/26/17 10:31 Dose: 1 tab Piperacillin Sod/Tazobactam Sod (Zosyn 3.375gm Ivpb (Pre-Docked)) 50 mls @ 100 mls/hr IVPB Q8H-IV [facility] PRN Reason: Protocol Last Admin: 03/26/17 10:31 Dose: 100 mls/hr Levofloxacin (Levaquin) 750 mg PO DAILY [facility] Silver Sulfadiazine (Silvadene -) 1 applic TP BID [facility] Last Admin: 03/26/17 10:32 Dose: 1 applic - Objective Vital Signs: Vital Signs Temperature 98.1 F 03/25/17 16:30 Pulse Rate 77 03/25/17 16:30 Respiratory Rate 20 03/25/17 21:00 Blood Pressure 133/69 03/25/17 16:30 O2 Sat by Pulse Oximetry (%) 99 03/23/17 21:00 Constitutional: Yes: No Distress, Calm Cardiovascular: Yes: Regular Rate and Rhythm Respiratory: Yes: Regular, CTA Bilaterally Gastrointestinal: Yes: Normal Bowel Sounds, Soft Musculoskeletal: Yes: Other Extremities: Yes: Other Wound/Incision: Yes: Dressing Dry and Intact Neurological: Yes: Alert, Oriented Psychiatric: Yes: Alert, Oriented Labs: CBC, BMP 03/24/17 06:20 03/24/17 06:20 Assessment/Plan - Problems (1) Cellulitis Assessment/Plan: Code(s): L03.90 - CELLULITIS, UNSPECIFIED (2) HTN (hypertension) Code(s): I10 - ESSENTIAL (PRIMARY) HYPERTENSION fungal infection plan continue as per dermatology abx changed patient will need zosyn for another 10 days should get a picc line patient also has acteino bacter rest as per primary
[2017-03-26] MEDS: LEVOFLOXACIN 750 MG TABLET PO SCH (16:06)
--- NOTE | 2017-03-26 19:35 | PN ---
Progress Note, Physician History of Present Illness: Pt states that she has to leave in the am - Current Medication List Current Medications: Active Medications Amlodipine Besylate (Norvasc -) 5 mg PO DAILY [facility] Last Admin: 03/26/17 10:31 Dose: 5 mg Clotrimazole (Lotrimin 1% Cream -) 1 applic TP BID [facility] Last Admin: 03/26/17 10:32 Dose: 1 applic Diphenhydramine HCl (Benadryl -) 25 mg PO Q8H PRN PRN Reason: FOR ITCHING Last Admin: 03/24/17 20:57 Dose: 25 mg Enoxaparin Sodium (Lovenox -) 40 mg SQ DAILY [facility] Last Admin: 03/26/17 10:31 Dose: 40 mg Fluconazole (Diflucan -) 100 mg PO DAILY [facility] Last Admin: 03/26/17 10:31 Dose: 100 mg Fluocinonide (Lidex 0.05% Ointment -) 1 applic TP DAILY [facility] Last Admin: 03/26/17 10:34 Dose: 1 applic HCTZ/Losartan Potassium (Hyzaar -) 1 tab PO DAILY [facility] Last Admin: 03/26/17 10:31 Dose: 1 tab Piperacillin Sod/Tazobactam Sod (Zosyn 3.375gm Ivpb (Pre-Docked)) 50 mls @ 100 mls/hr IVPB Q8H-IV [facility] PRN Reason: Protocol Last Admin: 03/26/17 17:57 Dose: 100 mls/hr Levofloxacin (Levaquin) 750 mg PO DAILY [facility] Last Admin: 03/26/17 16:06 Dose: 750 mg Silver Sulfadiazine (Silvadene -) 1 applic TP BID [facility] Last Admin: 03/26/17 10:32 Dose: 1 applic - Objective Vital Signs: Vital Signs Temperature 98.2 F 03/26/17 16:30 Pulse Rate 65 03/26/17 16:30 Respiratory Rate 20 03/26/17 16:30 Blood Pressure 110/69 03/26/17 16:30 O2 Sat by Pulse Oximetry (%) 99 03/23/17 21:00 Constitutional: Yes: Well Nourished Eyes: Yes: WNL HENT: Yes: WNL Neck: Yes: WNL, Supple Cardiovascular: Yes: WNL, Regular Rate and Rhythm Respiratory: Yes: WNL, Regular, CTA Bilaterally Gastrointestinal: Yes: WNL, Normal Bowel Sounds, Soft, Abdomen, Obese Extremities: Yes: Other ((+) desquamation of skin on b/l feet) Labs: CBC, BMP 03/24/17 06:20 03/24/17 06:20 Problem List - Problems (1) Cellulitis Assessment/Plan: Wound culture grew serratia/pseudomonas/enterococcus Cont IV zosyn Cont PO levaquin/diflucan Will d/w ID about treatment course Pt to f/u w/ derm as outpt Cont wound care Code(s): L03.90 - CELLULITIS, UNSPECIFIED (2) HTN (hypertension) Assessment/Plan: BP stable Cont antihypertensives Code(s): I10 - ESSENTIAL (PRIMARY) HYPERTENSION
[2017-03-27] MEDS: PIPERACILLIN/TAZOB 3.375 GM 50 ML IVPB SCH ×2 (02:06→10:25)
[2017-03-27 06:06] VITALS: BP 137/73; PULSE 73; TEMP 98.9
[2017-03-27 08:12] LABS: MCH 28.2 pg (25.7-33.7); MCHC 33.2 g/dl (32.0-36.0); MEAN CELL VOLUME 84.8 fl (80-96); MEAN PLT VOLUME 8.5 fl (7.5-11.1); PLATELET COUNT 382 K/MM3 (134-434); RDW 15.6 % (11.6-15.6); WHITE BLOOD COUNT 10.1 K/mm3 (4.0-10.0)
[2017-03-27 08:47] LABS: ANION GAP 8 (8-16); CALCIUM 8.9 mg/dL (8.5-10.1); CO2 27 mmol/L (21-32); CREATININE 0.7 mg/dL (0.55-1.02); GLUCOSE,RANDOM 89 mg/dL (74-106)
[2017-03-27] MEDS ORDERED: PT OWN MED DRAWER 7, Y5N ONE (10:12)
[2017-03-27] MEDS: amLODIPine BESYLATE 5 MG TABLET (FP) PO SCH (10:22)
[2017-03-27] MEDS: LOSARTAN 50MG/HCTZ 12.5MG 1 TAB (FP) PO SCH (10:22)
[2017-03-27] MEDS: ENOXAPARIN NA (PORCINE) 40 MG/0.4 ML DISP.SYRIN SQ SCH (10:22)
[2017-03-27] MEDS: LEVOFLOXACIN 750 MG TABLET PO SCH (10:22)
[2017-03-27] MEDS: FLUCONAZOLE 100 MG TABLET (UD) PO SCH (10:22)
[2017-03-27] MEDS: CLOTRIMAZOLE 1% CREAM 15 GM TUBE TP SCH (10:24)
[2017-03-27] MEDS: SILVER SULFADIAZINE 1% TOP CREAM 400 GM JAR TP SCH (10:25)
[2017-03-27] MEDS: FLUOCINONIDE 0.05% TOP OINT (15 GM TUBE) TP SCH (10:25)
--- NOTE | 2017-03-27 13:36 | PN ---
Progress Note, Physician History of Present Illness: patients rash is improving patient does not want to stay patient needs a picc line for abx - Current Medication List Current Medications: Active Medications Amlodipine Besylate (Norvasc -) 5 mg PO DAILY [facility] Last Admin: 03/27/17 10:22 Dose: 5 mg Clotrimazole (Lotrimin 1% Cream -) 1 applic TP BID [facility] Last Admin: 03/27/17 10:24 Dose: 1 applic Diphenhydramine HCl (Benadryl -) 25 mg PO Q8H PRN PRN Reason: FOR ITCHING Last Admin: 03/24/17 20:57 Dose: 25 mg Enoxaparin Sodium (Lovenox -) 40 mg SQ DAILY [facility] Last Admin: 03/27/17 10:22 Dose: 40 mg Fluconazole (Diflucan -) 100 mg PO DAILY [facility] Last Admin: 03/27/17 10:22 Dose: 100 mg Fluocinonide (Lidex 0.05% Ointment -) 1 applic TP DAILY [facility] Last Admin: 03/27/17 10:25 Dose: 1 applic HCTZ/Losartan Potassium (Hyzaar -) 1 tab PO DAILY [facility] Last Admin: 03/27/17 10:22 Dose: 1 tab Piperacillin Sod/Tazobactam Sod (Zosyn 3.375gm Ivpb (Pre-Docked)) 50 mls @ 100 mls/hr IVPB Q8H-IV [facility] PRN Reason: Protocol Last Admin: 03/27/17 10:25 Dose: 100 mls/hr Levofloxacin (Levaquin) 750 mg PO DAILY [facility] Last Admin: 03/27/17 10:22 Dose: 750 mg Silver Sulfadiazine (Silvadene -) 1 applic TP BID [facility] Last Admin: 03/27/17 10:25 Dose: 1 applic - Objective Vital Signs: Vital Signs Temperature 98.9 F 03/27/17 06:05 Pulse Rate 73 03/27/17 06:05 Respiratory Rate 18 03/27/17 06:05 Blood Pressure 137/73 03/27/17 06:05 O2 Sat by Pulse Oximetry (%) 99 03/23/17 21:00 Constitutional: Yes: No Distress, Calm HENT: Yes: Atraumatic, Normocephalic Cardiovascular: Yes: Regular Rate and Rhythm Respiratory: Yes: Regular, CTA Bilaterally Gastrointestinal: Yes: Normal Bowel Sounds, Soft Musculoskeletal: Yes: WNL Extremities: Yes: WNL Integumentary: Yes: Rash (improving) Neurological: Yes: Alert, Oriented Labs: CBC, BMP 03/27/17 06:00 03/27/17 06:00 Assessment/Plan - Problems (1) Cellulitis Assessment/Plan: Code(s): L03.90 - CELLULITIS, UNSPECIFIED (2) HTN (hypertension) Code(s): I10 - ESSENTIAL (PRIMARY) HYPERTENSION fungal infection plan continue as per dermatology patient cant stay any more will switch her to oral abx levaquin 750mg daily for 10 days ampicillin 500mg every 8 hourly for 10 days rest continue the antifungal cream
== END 2017-03-27 15:10 | disposition left against medical advice (07) | DRG 383 ==
LOC: JER 10:56 → JERBED 12:10 → J8W 13:10
PROVIDERS: ADMIT Internal Medicine; ATTEND Internal Medicine
DX: L03.116 Cellulitis of left lower limb (principal); L03.115 Cellulitis of right lower limb; L03.311 Cellulitis of abdominal wall; L03.114 Cellulitis of left upper limb; L03.113 Cellulitis of right upper limb; B95.62 Methicillin resistant Staphylococcus aureus infection as the cause of diseases classified elsewhere; B96.5 Pseudomonas (aeruginosa) (mallei) (pseudomallei) as the cause of diseases classified elsewhere; I10 Essential (primary) hypertension; F17.210 Nicotine dependence, cigarettes, uncomplicated; L30.1 Dyshidrosis [pompholyx]
CPT/HCPCS: 36415; 80048; 80053; 83605; 85025; 85027; 87040; 87070; 87186; 87205; 99281-25; 99282-25; G0480

== ENCOUNTER 2021-01-13 17:53 | Emergency (ER) | payer OTHER ==
[2021-01-13 18:22] VITALS: BP 168/101; PULSE 79; TEMP 98; BMI 26.6
== END 2021-01-13 19:42 | disposition home or self-care (01) ==
LOC: JERFT 17:53 → JER 17:53 → JERFT 19:42
DX: S93.401A Sprain of unspecified ligament of right ankle, initial encounter (principal)
CPT/HCPCS: 73610-TC-RT-FY; 73630-TC-RT-FY; 99283-25

== ENCOUNTER 2024-03-29 15:52 | Emergency (ER) | payer OTHER ==
[2024-03-29 16:01] VITALS: BP 136/85; PULSE 92; RESP 18; TEMP 98.6; BMI 19.5
== END 2024-03-29 16:52 | disposition home or self-care (01) ==
LOC: JER 15:52 → JERFT 15:52
DX: S80.11XA Contusion of right lower leg, initial encounter (principal); W20.8XXA Other cause of strike by thrown, projected or falling object, initial encounter
CPT/HCPCS: 99282-25

== ENCOUNTER 2024-04-08 15:43 | Observation (INO) | payer OTHER ==
[2024-04-08 16:14] VITALS: BP 105/78; PULSE 68; RESP 18; TEMP 98.2; BMI 26.6
[2024-04-08] MEDS ORDERED: VANCOMYCIN PREMIX 1.75 GM 1,750 MG/350 ML PIGGYBACK IVPB ONE (17:02)
[2024-04-08] MEDS ORDERED: VANCOMYCIN/WATER 1250 MG 1,250 MG/250 ML BAG IVPB ONE (17:43)
[2024-04-08 18:12] LABS: BASO % 1.1 % (0-2.0); EOS % 1.8 % (0-4.5); HEMATOCRIT 30.3 % (32.4-45.2); HEMOGLOBIN 9.9 GM/dL (10.7-15.3); LYMPH % 24.3 % (8-40); MCH 29.4 pg (25.7-33.7); MCHC 32.6 g/dl (32.0-36.0); MEAN CELL VOLUME 89.9 fl (80-96); MEAN PLT VOLUME 7.6 fl (7.5-11.1); MONO % 7.2 % (3.8-10.2); NEUT % 65.6 % (42.8-82.8); PLATELET COUNT 279 10^3/uL (134-434); RBC 3.36 M/mm3 (3.60-5.2); RDW 17.9 % (11.6-15.6); WHITE BLOOD COUNT 9.3 K/mm3 (4.0-10.0)
[2024-04-08 18:26] LABS: CHLORIDE 108 mmol/L (98-107); POTASSIUM 4.1 mmol/L (3.5-5.1); SODIUM 140 mmol/L (136-145)
[2024-04-08 18:28] LABS: ANION GAP 10 mmol/L (4-13); BLOOD UREA NITROGEN 9.9 mg/dL (7-18); CALCIUM 9.1 mg/dL (8.5-10.1); CO2 22 mmol/L (21-32)
[2024-04-08 18:29] LABS: ALBUMIN 2.9 g/dl (3.4-5.0); GLUCOSE,RANDOM 99 mg/dL (74-106)
[2024-04-08 18:31] LABS: SGPT/ALT 21 U/L (13-61)
[2024-04-08 18:32] LABS: CREATININE 0.7 mg/dL (0.55-1.3); SGOT/AST 35 U/L (15-37)
[2024-04-08 18:33] LABS: BILIRUBIN,TOTAL 0.4 mg/dL (0.2-1)
[2024-04-08 18:34] LABS: ALK PHOS 94 U/L (45-117)
[2024-04-08 19:37] LABS: ERYTHROCYTE SEDIMENTATION RATE 95 mm/hr (0-20)
[2024-04-08] MEDS: VANCOMYCIN/WATER 1250 MG 1,250 MG/250 ML BAG IVPB ONE (20:58)
[2024-04-08 21:11] LABS: BASO % 0.8 % (0-2.0); EOS % 2.5 % (0-4.5); HEMATOCRIT 28.2 % (32.4-45.2); HEMOGLOBIN 9.3 GM/dL (10.7-15.3); LYMPH % 21.1 % (8-40); MCH 29.6 pg (25.7-33.7); MCHC 33.1 g/dl (32.0-36.0); MEAN CELL VOLUME 89.3 fl (80-96); MEAN PLT VOLUME 7.8 fl (7.5-11.1); MONO % 7.9 % (3.8-10.2); NEUT % 67.7 % (42.8-82.8); PLATELET COUNT 263 10^3/uL (134-434); RBC 3.15 M/mm3 (3.60-5.2); RDW 17.5 % (11.6-15.6); WHITE BLOOD COUNT 7.7 K/mm3 (4.0-10.0)
== END 2024-04-08 23:05 | disposition left against medical advice (07) ==
LOC: JER 15:43 → JERBED 18:52
PROVIDERS: ADMIT Internal Medicine; ATTEND Internal Medicine
DX: L03.115 Cellulitis of right lower limb (principal); D64.9 Anemia, unspecified; I10 Essential (primary) hypertension; Z86.14 Personal history of Methicillin resistant Staphylococcus aureus infection; W20.8XXA Other cause of strike by thrown, projected or falling object, initial encounter; Y93.89 Activity, other specified; Y92.009 Unspecified place in unspecified non-institutional (private) residence as the place of occurrence of the external cause
CPT/HCPCS: 36415; 76882-TC-RT; 80053; 85025; 85651; 86140; 87070; 87205; 93005; 93010; 96365; 99285-25; G0378

== ENCOUNTER 2024-04-15 18:50 | Inpatient (IN) | payer OTHER ==
[2024-04-15] MEDS: LACTATED RINGERS SOLUTION 1000 ML INFUS.BAG IV ONE (21:14)
[2024-04-15] MEDS ORDERED: VANCOMYCIN 1 GRAM (PRE-DOCKED) 1,000 MG/250 ML BAG IVPB ONE (21:15)
[2024-04-15 21:17] LABS: BASO % 1.1 % (0-2.0); EOS % 1.5 % (0-4.5); HEMATOCRIT 31.2 % (32.4-45.2); HEMOGLOBIN 10.2 GM/dL (10.7-15.3); LYMPH % 28.9 % (8-40); MCHC 32.9 g/dl (32.0-36.0); MEAN CELL VOLUME 88.1 fl (80-96); MEAN PLT VOLUME 7.3 fl (7.5-11.1); MONO % 7.4 % (3.8-10.2); NEUT % 61.1 % (42.8-82.8); PLATELET COUNT 314 10^3/uL (134-434); RBC 3.54 M/mm3 (3.60-5.2); RDW 17.3 % (11.6-15.6); WHITE BLOOD COUNT 7.7 K/mm3 (4.0-10.0)
[2024-04-15] MEDS: VANCOMYCIN 1,000 MG in DEXTROSE 5%-WATER - 250 ML IVPB ONE (21:22)
[2024-04-15 21:34] LABS: INR 0.96 (0.83-1.09); PROTHROMBIN TIME (PATIENT) 10.9 SEC (9.7-13.0)
[2024-04-15 21:36] LABS: ACTIVATED PTT 37.5 SECONDS (25.2-36.5)
[2024-04-15 21:40] LABS: CHLORIDE 106 mmol/L (98-107); POTASSIUM 3.8 mmol/L (3.5-5.1); SODIUM 140 mmol/L (136-145)
[2024-04-15 21:42] LABS: ANION GAP 8 mmol/L (4-13); BLOOD UREA NITROGEN 7.7 mg/dL (7-18); CALCIUM 8.7 mg/dL (8.5-10.1); CO2 26 mmol/L (21-32); GLUCOSE,RANDOM 88 mg/dL (74-106); MAGNESIUM 1.7 mg/dL (1.8-2.4)
[2024-04-15 21:43] LABS: ALBUMIN 2.8 g/dl (3.4-5.0)
[2024-04-15 21:45] LABS: SGPT/ALT 20 U/L (13-61)
[2024-04-15 21:46] LABS: CREATININE 0.8 mg/dL (0.55-1.3); SGOT/AST 31 U/L (15-37)
[2024-04-15 21:47] LABS: BILIRUBIN,TOTAL 0.4 mg/dL (0.2-1); TOT PROT 8.1 g/dl (6.4-8.2)
[2024-04-15 21:48] LABS: ALK PHOS 101 U/L (45-117)
[2024-04-15 22:06] LABS: ERYTHROCYTE SEDIMENTATION RATE 77 mm/hr (0-20)
[2024-04-16] MEDS ORDERED: PIPERACILLIN/TAZOB 3.375 GM 3.375 GM in DEXTROSE 5%-WATER - 50 ML IVPB SCH (03:15)
[2024-04-16] MEDS ORDERED: PIPERACILLIN/TAZOB 3.375 GM 3.375 GM/50 ML BAG IVPB ONE ×3 (03:30→15:39)
[2024-04-16] MEDS: PIPERACILLIN/TAZOB 3.375 GM 3.375 GM in DEXTROSE 5%-WATER - 50 ML IVPB SCH (03:51)
[2024-04-16 07:25] LABS: BASO % 0.8 % (0-2.0); EOS % 2.1 % (0-4.5); HEMOGLOBIN 9.4 GM/dL (10.7-15.3); MCH 28.8 pg (25.7-33.7); MCHC 32.5 g/dl (32.0-36.0); MEAN CELL VOLUME 88.9 fl (80-96); MEAN PLT VOLUME 7.9 fl (7.5-11.1); MONO % 8.3 % (3.8-10.2); NEUT % 72.8 % (42.8-82.8); PLATELET COUNT 275 10^3/uL (134-434); RBC 3.27 M/mm3 (3.60-5.2); RDW 17.1 % (11.6-15.6); WHITE BLOOD COUNT 8.9 K/mm3 (4.0-10.0)
[2024-04-16 07:39] LABS: POTASSIUM 3.6 mmol/L (3.5-5.1)
[2024-04-16 07:44] LABS: CALCIUM 8.8 mg/dL (8.5-10.1)
[2024-04-16 07:45] LABS: ALBUMIN 2.7 g/dl (3.4-5.0); BLOOD UREA NITROGEN 9.4 mg/dL (7-18); MAGNESIUM 1.2 mg/dL (1.8-2.4)
[2024-04-16 07:47] LABS: PHOSPHOROUS 2.5 mg/dL (2.5-4.9)
[2024-04-16 07:48] LABS: CREATININE 0.7 mg/dL (0.55-1.3)
[2024-04-16 07:49] LABS: BILIRUBIN,TOTAL 0.5 mg/dL (0.2-1); TOT PROT 7.5 g/dl (6.4-8.2)
[2024-04-16] MEDS: MAGNESIUM SULFATE IN WATER 2 GM/50 ML IVPB IVPB ONE (09:34)
[2024-04-16] MEDS ORDERED: LOSARTAN 50MG/HCTZ 12.5MG 1 TAB PO SCH (10:00)
[2024-04-16] MEDS ORDERED: amLODIPine BESYLATE 5 MG TABLET (FP) PO SCH (10:00)
[2024-04-16] MEDS: amLODIPine BESYLATE 5 MG TABLET (FP) PO SCH (10:05)
[2024-04-16] MEDS: LOSARTAN 50MG/HCTZ 12.5MG 1 TAB PO SCH (10:05)
[2024-04-16] MEDS ORDERED: amLODIPine BESYLATE 5 MG TABLET (FP) ONE (13:39)
[2024-04-16] MEDS: NICOTINE 14 MG/24 HOURS TOPICAL PATCH TD SCH (14:11)
[2024-04-16] MEDS: amLODIPine BESYLATE 5 MG TABLET (FP) PO ONE (14:11)
[2024-04-16 20:17] VITALS: BMI 32.8
[2024-04-16] MEDS: VANCOMYCIN/WATER FOR INJ (PEG) 1,000 MG/200 ML BAG IVPB SCH (21:20)
[2024-04-16] MEDS ORDERED: VANCOMYCIN 1,000 MG in DEXTROSE 5%-WATER - 250 ML IVPB SCH (22:00)
[2024-04-16] MEDS ORDERED: VANCOMYCIN/WATER FOR INJ (PEG) 1,000 MG/200 ML BAG IVPB SCH (22:00)
[2024-04-16] MEDS: hydrALAZINE HCL 20 MG/ML VIAL IVPUSH ONE (23:45)
[2024-04-17] MEDS: amLODIPine BESYLATE 10 MG TABLET (FP) PO ONE (06:29)
[2024-04-17] MEDS: PIPERACILLIN/TAZOB 3.375 GM 3.375 GM in DEXTROSE 5%-WATER - 50 ML IVPB SCH (08:08)
[2024-04-17 09:30] LABS: BASO % 0.8 % (0-2.0); EOS % 4.2 % (0-4.5); HEMATOCRIT 30.7 % (32.4-45.2); HEMOGLOBIN 9.9 GM/dL (10.7-15.3); MCHC 32.3 g/dl (32.0-36.0); MEAN CELL VOLUME 89.7 fl (80-96); MEAN PLT VOLUME 8.1 fl (7.5-11.1); MONO % 10.3 % (3.8-10.2); NEUT % 67.7 % (42.8-82.8); PLATELET COUNT 290 10^3/uL (134-434); RBC 3.42 M/mm3 (3.60-5.2); RDW 16.9 % (11.6-15.6); WHITE BLOOD COUNT 7.7 K/mm3 (4.0-10.0)
[2024-04-17 09:45] LABS: CHLORIDE 100 mmol/L (98-107); POTASSIUM 3.6 mmol/L (3.5-5.1); SODIUM 133 mmol/L (136-145)
[2024-04-17 09:57] LABS: CALCIUM 9.1 mg/dL (8.5-10.1)
[2024-04-17 09:58] LABS: ALBUMIN 2.8 g/dl (3.4-5.0); ANION GAP 7 mmol/L (4-13); BLOOD UREA NITROGEN 7.3 mg/dL (7-18); CO2 27 mmol/L (21-32); GLUCOSE,RANDOM 92 mg/dL (74-106); MAGNESIUM 1.6 mg/dL (1.8-2.4)
[2024-04-17 09:59] LABS: CREATININE 0.7 mg/dL (0.55-1.3); SGOT/AST 23 U/L (15-37)
[2024-04-17] MEDS ORDERED: amLODIPine BESYLATE 10 MG TABLET (FP) PO SCH (10:00)
[2024-04-17 10:01] LABS: BILIRUBIN,TOTAL 1.3 mg/dL (0.2-1); SGPT/ALT 16 U/L (13-61); TOT PROT 7.6 g/dl (6.4-8.2)
[2024-04-17 10:02] LABS: ALK PHOS 95 U/L (45-117)
[2024-04-17] MEDS: amLODIPine BESYLATE 10 MG TABLET (FP) PO SCH (10:35)
[2024-04-17] MEDS ORDERED: ACETAMINOPHEN 325 MG TABLET (FP) PO PRN (17:34)
[2024-04-17] MEDS: CLINDAMYCIN 900 MG PREMIX IVPB 900 MG/50 ML BAG IVPB SCH (17:52)
[2024-04-18 08:23] LABS: HEMATOCRIT 29.7 % (32.4-45.2); HEMOGLOBIN 9.7 GM/dL (10.7-15.3); MCH 28.9 pg (25.7-33.7); MCHC 32.6 g/dl (32.0-36.0); MEAN CELL VOLUME 88.5 fl (80-96); MEAN PLT VOLUME 7.9 fl (7.5-11.1); PLATELET COUNT 253 10^3/uL (134-434); RBC 3.35 M/mm3 (3.60-5.2); RDW 16.6 % (11.6-15.6); WHITE BLOOD COUNT 6.6 K/mm3 (4.0-10.0)
[2024-04-18 08:40] LABS: POTASSIUM 3.2 mmol/L (3.5-5.1)
[2024-04-18 08:43] LABS: ALBUMIN 2.6 g/dl (3.4-5.0); MAGNESIUM 1.5 mg/dL (1.8-2.4)
[2024-04-18 08:46] LABS: CREATININE 0.8 mg/dL (0.55-1.3); PHOSPHOROUS 3.8 mg/dL (2.5-4.9)
[2024-04-18 08:48] LABS: BILIRUBIN,TOTAL 0.6 mg/dL (0.2-1)
[2024-04-18] MEDS ORDERED: amLODIPine BESYLATE 10 MG TABLET (FP) PO SCH (10:00)
[2024-04-19 09:31] LABS: HEMATOCRIT 28.8 % (32.4-45.2); HEMOGLOBIN 9.6 GM/dL (10.7-15.3); MCH 29.3 pg (25.7-33.7); MCHC 33.4 g/dl (32.0-36.0); PLATELET COUNT 254 10^3/uL (134-434); RBC 3.27 M/mm3 (3.60-5.2); RDW 16.5 % (11.6-15.6); WHITE BLOOD COUNT 7.8 K/mm3 (4.0-10.0)
[2024-04-19 09:56] LABS: POTASSIUM 3.3 mmol/L (3.5-5.1)
[2024-04-19 10:13] LABS: CALCIUM 8.7 mg/dL (8.5-10.1)
[2024-04-19 10:14] LABS: ALBUMIN 2.6 g/dl (3.4-5.0); BLOOD UREA NITROGEN 9.5 mg/dL (7-18); MAGNESIUM 1.3 mg/dL (1.8-2.4)
[2024-04-19 10:17] LABS: CREATININE 0.8 mg/dL (0.55-1.3); PHOSPHOROUS 3.3 mg/dL (2.5-4.9)
[2024-04-19 10:18] LABS: BILIRUBIN,TOTAL 0.5 mg/dL (0.2-1); TOT PROT 6.8 g/dl (6.4-8.2)
[2024-04-19] MEDS: diphenhydrAMINE HCL 25 MG CAPSULE (FP) PO ONE (17:38)
[2024-04-19] MEDS: POTASSIUM CHLORIDE ORAL LIQUID 20 MEQ/15 ML PO ONE (22:28)
[2024-04-20] MEDS: diphenhydrAMINE HCL 25 MG CAPSULE (FP) PO ONE (02:29)
[2024-04-20 09:15] LABS: POTASSIUM 3.5 mmol/L (3.5-5.1)
[2024-04-20 09:20] LABS: ALBUMIN 2.7 g/dl (3.4-5.0); BLOOD UREA NITROGEN 8.1 mg/dL (7-18); CALCIUM 9.2 mg/dL (8.5-10.1); HEMATOCRIT 29.2 % (32.4-45.2); HEMOGLOBIN 9.7 GM/dL (10.7-15.3); MAGNESIUM 1.5 mg/dL (1.8-2.4); MCH 29.5 pg (25.7-33.7); MCHC 33.3 g/dl (32.0-36.0); MEAN CELL VOLUME 88.5 fl (80-96); MEAN PLT VOLUME 8.1 fl (7.5-11.1); PLATELET COUNT 245 10^3/uL (134-434); RDW 16.5 % (11.6-15.6); WHITE BLOOD COUNT 8.6 K/mm3 (4.0-10.0)
[2024-04-20 09:23] LABS: CREATININE 0.7 mg/dL (0.55-1.3); PHOSPHOROUS 3.1 mg/dL (2.5-4.9)
[2024-04-20 09:24] LABS: BILIRUBIN,TOTAL 0.5 mg/dL (0.2-1)
[2024-04-20 09:26] LABS: TOT PROT 7.1 g/dl (6.4-8.2)
[2024-04-20 10:13] LABS: INR 0.99 (0.83-1.09); PROTHROMBIN TIME (PATIENT) 11.4 SEC (9.7-13.0)
[2024-04-20 10:20] LABS: ACTIVATED PTT 34.3 SECONDS (25.2-36.5)
[2024-04-20] MEDS ORDERED: ONDANSETRON 4 MG/2 ML VIAL IVPUSH PRN ×2 (10:36→14:39)
[2024-04-20] MEDS ORDERED: LACTATED RINGERS SOLUTION 1,000 ML IV SCH (10:45)
[2024-04-20] MEDS ORDERED: POTASSIUM CHLORIDE ORAL LIQUID 20 MEQ/15 ML PO ONE (11:00)
[2024-04-20] MEDS: POTASSIUM CHLORIDE TABS 20 MEQ TABLET.ER (FP) PO ONE (11:05)
[2024-04-20] MEDS: MAGNESIUM OXIDE 400 MG TABLET (FP) PO ONE (11:05)
[2024-04-20] MEDS ORDERED: MIDAZOLAM HCL 2 MG/2 ML SINGLE DOSE VIAL ONE (13:04)
[2024-04-20] MEDS ORDERED: PROPOFOL 20 ML ONE (13:04)
[2024-04-20] MEDS ORDERED: KETOROLAC TROMETHAMINE 30 MG/1 ML VIAL ONE (13:34)
[2024-04-20] MEDS ORDERED: ACETAMINOPHEN 325 MG TABLET (FP) PO PRN (14:39)
[2024-04-20] MEDS: PIPERACILLIN/TAZOB 3.375 GM 3.375 GM in DEXTROSE 5%-WATER - 50 ML IVPB SCH (16:02)
[2024-04-20] MEDS: TRIAMCINOLONE ACET 0.1% 60 ML LOTION TP SCH (18:57)
[2024-04-20] MEDS: DOXYCYCLINE INJECTION 100 MG in DEXTROSE 5%-WATER 100 ML IVPB SCH (18:57)
[2024-04-20] MEDS ORDERED: VANCOMYCIN/WATER FOR INJ (PEG) 1,000 MG/200 ML BAG IVPB SCH (20:00)
[2024-04-21] MEDS: KETOROLAC TROMETHAMINE 15 MG/ML VIAL IVPUSH PRN (03:24)
[2024-04-21 10:16] LABS: HEMATOCRIT 28.2 % (32.4-45.2); HEMOGLOBIN 9.2 GM/dL (10.7-15.3); MCH 29.1 pg (25.7-33.7); MCHC 32.5 g/dl (32.0-36.0); MEAN CELL VOLUME 89.3 fl (80-96); MEAN PLT VOLUME 8.3 fl (7.5-11.1); PLATELET COUNT 255 10^3/uL (134-434); RBC 3.16 M/mm3 (3.60-5.2); RDW 16.6 % (11.6-15.6); WHITE BLOOD COUNT 11.2 K/mm3 (4.0-10.0)
[2024-04-21 10:24] LABS: POTASSIUM 3.6 mmol/L (3.5-5.1)
[2024-04-21 10:31] LABS: ALBUMIN 2.6 g/dl (3.4-5.0); BLOOD UREA NITROGEN 9.2 mg/dL (7-18); CALCIUM 9.2 mg/dL (8.5-10.1)
[2024-04-21 10:33] LABS: MAGNESIUM 1.5 mg/dL (1.8-2.4)
[2024-04-21 10:35] LABS: CREATININE 0.8 mg/dL (0.55-1.3); PHOSPHOROUS 2.5 mg/dL (2.5-4.9)
[2024-04-21 10:37] LABS: BILIRUBIN,TOTAL 0.4 mg/dL (0.2-1)
[2024-04-21] MEDS: LOSARTAN 50MG/HCTZ 12.5MG 1 TAB PO SCH (10:50)
[2024-04-21] MEDS: amLODIPine BESYLATE 10 MG TABLET (FP) PO SCH (10:50)
[2024-04-21] MEDS: NICOTINE 14 MG/24 HOURS TOPICAL PATCH TD SCH (12:28)
[2024-04-21] MEDS: CLOTRIMAZOLE 1% CREAM TP SCH (18:41)
[2024-04-21] MEDS ORDERED: PIPERACILLIN/TAZOBACTAM 3.375 GM VIAL IVPB ONE (21:43)
[2024-04-22] MEDS: DEXTROSE 5%-0.45% SALINE 1,000 ML IV SCH (08:44)
[2024-04-22] MEDS ORDERED: BUPIVACAINE HCL/PF 0.5% (5MG/ML) 10 ML VIAL ONE (08:49)
[2024-04-22] MEDS ORDERED: LIDOCAINE HCL 1%, 10 MG/ML (20ML VIAL) ONE (08:49)
[2024-04-22] MEDS ORDERED: SUCCINYLCHOLINE CHLORIDE 200 MG/10 ML SYRINGE ONE (09:53)
[2024-04-22] MEDS ORDERED: MIDAZOLAM HCL 2 MG/2 ML SINGLE DOSE VIAL ONE (09:53)
[2024-04-22] MEDS ORDERED: PROPOFOL 20 ML ONE ×2 (09:59→10:03)
[2024-04-22] MEDS ORDERED: HYDROmorphone HCl 2 MG/ML VIAL ONE (10:07)
[2024-04-22] MEDS ORDERED: LIDOCAINE 1%/EPI 1:100000 (20 ML MULTI DOSE VIAL) ONE (10:25)
[2024-04-22] MEDS: LIDOCAINE 1%/EPI 1:100000 (20 ML MULTI DOSE VIAL) INF ONE (10:31)
[2024-04-22] MEDS: MINERAL OIL 25 ML OIL TP ONE ×2 (10:31)
[2024-04-22 10:48] LABS: INR 1.02 (0.83-1.09); PROTHROMBIN TIME (PATIENT) 11.5 SEC (9.7-13.0)
[2024-04-22 10:49] LABS: HEMATOCRIT 30.2 % (32.4-45.2); HEMOGLOBIN 9.9 GM/dL (10.7-15.3); MCH 29.2 pg (25.7-33.7); MCHC 32.7 g/dl (32.0-36.0); MEAN CELL VOLUME 89.2 fl (80-96); MEAN PLT VOLUME 8.3 fl (7.5-11.1); PLATELET COUNT 304 10^3/uL (134-434); RBC 3.39 M/mm3 (3.60-5.2); RDW 16.3 % (11.6-15.6); WHITE BLOOD COUNT 9.9 K/mm3 (4.0-10.0)
[2024-04-22 11:02] LABS: CALCIUM 9.3 mg/dL (8.5-10.1)
[2024-04-22 11:03] LABS: ALBUMIN 2.8 g/dl (3.4-5.0); BLOOD UREA NITROGEN 9.2 mg/dL (7-18); MAGNESIUM 1.5 mg/dL (1.8-2.4)
[2024-04-22 11:06] LABS: CREATININE 0.7 mg/dL (0.55-1.3)
[2024-04-22 11:07] LABS: BILIRUBIN,TOTAL 0.6 mg/dL (0.2-1); TOT PROT 7.6 g/dl (6.4-8.2)
[2024-04-22] MEDS ORDERED: ONDANSETRON 4 MG/2 ML VIAL IVPUSH PRN (11:13)
[2024-04-22] MEDS ORDERED: KETOROLAC TROMETHAMINE 15 MG/ML VIAL IVPUSH PRN (11:34)
[2024-04-22] MEDS ORDERED: ACETAMINOPHEN INJECTION 100 ML IVPB ONE (11:38)
[2024-04-22] MEDS: ACETAMINOPHEN 650 MG/20.3 ML ORAL SOLUTION (CUPS) PO SCH (11:40)
[2024-04-22] MEDS: ACETAMINOPHEN INJECTION 100 ML IVPB ONE (11:50)
[2024-04-22] MEDS: LOSARTAN 50MG/HCTZ 12.5MG 1 TAB PO ONE (14:00)
[2024-04-22] MEDS: ONDANSETRON 4 MG/2 ML VIAL IVPUSH PRN (14:00)
[2024-04-22] MEDS: MAGNESIUM 2GM/50ML STERILE WATER IVPB IVPB ONE (14:58)
[2024-04-22] MEDS: PIPERACILLIN/TAZOB 3.375 GM 3.375 GM in DEXTROSE 5%-WATER - 50 ML IVPB SCH (15:53)
[2024-04-22] MEDS ORDERED: PIPERACILLIN/TAZOBACTAM 3.375 GM VIAL IVPB ONE (20:30)
[2024-04-22] MEDS: TRIAMCINOLONE ACET 0.1% 60 ML LOTION TP SCH (21:12)
[2024-04-22] MEDS: CLOTRIMAZOLE 1% CREAM TP SCH (21:13)
[2024-04-22] MEDS: DOXYCYCLINE INJECTION 100 MG in DEXTROSE 5%-WATER 100 ML IVPB SCH (21:15)
[2024-04-22] MEDS: ACETAMINOPHEN 500 MG TABLET (FP) PO SCH (23:54)
[2024-04-23] MEDS: LACTATED RINGERS SOLUTION 1,000 ML IV SCH (01:23)
[2024-04-23] MEDS: LOSARTAN 50MG/HCTZ 12.5MG 1 TAB PO SCH (09:26)
[2024-04-23] MEDS: amLODIPine BESYLATE 10 MG TABLET (FP) PO SCH (09:26)
[2024-04-23 09:30] LABS: HEMATOCRIT 26.7 % (32.4-45.2); HEMOGLOBIN 8.8 GM/dL (10.7-15.3); MCH 29.1 pg (25.7-33.7); MCHC 33.1 g/dl (32.0-36.0); MEAN CELL VOLUME 87.9 fl (80-96); MEAN PLT VOLUME 7.9 fl (7.5-11.1); PLATELET COUNT 285 10^3/uL (134-434); RBC 3.04 M/mm3 (3.60-5.2); RDW 16.5 % (11.6-15.6); WHITE BLOOD COUNT 7.4 K/mm3 (4.0-10.0)
[2024-04-23 09:47] LABS: POTASSIUM 3.9 mmol/L (3.5-5.1)
[2024-04-23 09:52] LABS: CALCIUM 9.2 mg/dL (8.5-10.1)
[2024-04-23 09:53] LABS: BLOOD UREA NITROGEN 9.9 mg/dL (7-18); MAGNESIUM 1.6 mg/dL (1.8-2.4)
[2024-04-23 09:56] LABS: CREATININE 0.8 mg/dL (0.55-1.3); PHOSPHOROUS 3.6 mg/dL (2.5-4.9)
[2024-04-23] MEDS: NICOTINE 14 MG/24 HOURS TOPICAL PATCH TD SCH (12:20)
[2024-04-23] MEDS: FLUCONAZOLE 150 MG TABLET PO ONE (17:24)
[2024-04-23] MEDS ORDERED: PIPERACILLIN/TAZOBACTAM 3.375 GM VIAL IVPB ONE (20:36)
[2024-04-23] MEDS: DOXYCYCLINE INJECTION 100 MG in DEXTROSE 5%-WATER 100 ML IVPB SCH (21:49)
[2024-04-24] MEDS: DOXYCYCLINE HYCLATE 100 MG CAPSULE PO SCH (09:38)
[2024-04-24 10:22] LABS: HEMATOCRIT 30.8 % (32.4-45.2); MCH 28.7 pg (25.7-33.7); MCHC 32.4 g/dl (32.0-36.0); MEAN CELL VOLUME 88.6 fl (80-96); MEAN PLT VOLUME 8.1 fl (7.5-11.1); PLATELET COUNT 370 10^3/uL (134-434); RBC 3.48 M/mm3 (3.60-5.2); RDW 16.7 % (11.6-15.6); WHITE BLOOD COUNT 8.3 K/mm3 (4.0-10.0)
[2024-04-24 10:47] LABS: POTASSIUM 3.9 mmol/L (3.5-5.1)
[2024-04-24 10:51] LABS: CALCIUM 10.1 mg/dL (8.5-10.1)
[2024-04-24 10:52] LABS: BLOOD UREA NITROGEN 10.6 mg/dL (7-18); MAGNESIUM 1.5 mg/dL (1.8-2.4)
[2024-04-24 10:55] LABS: CREATININE 0.8 mg/dL (0.55-1.3)
[2024-04-25 09:36] LABS: HEMATOCRIT 29.6 % (32.4-45.2); HEMOGLOBIN 9.5 GM/dL (10.7-15.3); MCH 28.5 pg (25.7-33.7); MCHC 32.2 g/dl (32.0-36.0); MEAN CELL VOLUME 88.4 fl (80-96); MEAN PLT VOLUME 7.9 fl (7.5-11.1); PLATELET COUNT 369 10^3/uL (134-434); RBC 3.35 M/mm3 (3.60-5.2); RDW 16.8 % (11.6-15.6); WHITE BLOOD COUNT 9.1 K/mm3 (4.0-10.0)
[2024-04-25 10:19] LABS: POTASSIUM 4.1 mmol/L (3.5-5.1)
[2024-04-25 10:25] LABS: BLOOD UREA NITROGEN 13.2 mg/dL (7-18); CALCIUM 9.6 mg/dL (8.5-10.1); MAGNESIUM 1.3 mg/dL (1.8-2.4)
[2024-04-25 10:28] LABS: PHOSPHOROUS 3.6 mg/dL (2.5-4.9)
[2024-04-25 10:29] LABS: CREATININE 0.7 mg/dL (0.55-1.3)
[2024-04-26 10:25] VITALS: BP 137/86; PULSE 76; RESP 20; TEMP 98.4
[2024-04-26 10:26] LABS: HEMATOCRIT 29.5 % (32.4-45.2); HEMOGLOBIN 9.6 GM/dL (10.7-15.3); MCH 28.4 pg (25.7-33.7); MCHC 32.6 g/dl (32.0-36.0); MEAN CELL VOLUME 87.2 fl (80-96); MEAN PLT VOLUME 7.8 fl (7.5-11.1); PLATELET COUNT 403 10^3/uL (134-434); RBC 3.38 M/mm3 (3.60-5.2); RDW 16.7 % (11.6-15.6); WHITE BLOOD COUNT 8.8 K/mm3 (4.0-10.0)
[2024-04-26 10:47] LABS: POTASSIUM 3.5 mmol/L (3.5-5.1)
[2024-04-26 10:54] LABS: BLOOD UREA NITROGEN 14.4 mg/dL (7-18); CALCIUM 10.2 mg/dL (8.5-10.1); MAGNESIUM 1.5 mg/dL (1.8-2.4)
[2024-04-26 10:57] LABS: PHOSPHOROUS 3.1 mg/dL (2.5-4.9)
[2024-04-26 10:58] LABS: CREATININE 0.9 mg/dL (0.55-1.3)
[2024-04-26] MEDS: MAGNESIUM 2GM/50ML STERILE WATER IVPB IVPB ONE (11:28)
== END 2024-04-26 15:08 | disposition home or self-care (01) | DRG 791 ==
LOC: JER 18:50 → JERBED 21:33 → J5S 04-16 19:58
PROVIDERS: ADMIT Internal Medicine
PROC: 0J9N3ZX Drainage of Right Lower Leg Subcutaneous Tissue and Fascia, Percutaneous Approach, Diagnostic (ICD-10-PCS; 2024-04-17)
PROC: 0JBN0ZZ Excision of Right Lower Leg Subcutaneous Tissue and Fascia, Open Approach (ICD-10-PCS; 2024-04-20)
PROC: 0Y9C3ZZ Drainage of Right Upper Leg, Percutaneous Approach (ICD-10-PCS; 2024-04-20)
PROC: 0JBN0ZZ Excision of Right Lower Leg Subcutaneous Tissue and Fascia, Open Approach (ICD-10-PCS; 2024-04-22)
PROC: 0HRKX74 Replacement of Right Lower Leg Skin with Autologous Tissue Substitute, Partial Thickness, External Approach (ICD-10-PCS; principal; 2024-04-22 09:58)
DX: L76.32 Postprocedural hematoma of skin and subcutaneous tissue following other procedure (principal); I96 Gangrene, not elsewhere classified; B37.9 Candidiasis, unspecified; F17.210 Nicotine dependence, cigarettes, uncomplicated; I10 Essential (primary) hypertension; L03.115 Cellulitis of right lower limb; A49.02 Methicillin resistant Staphylococcus aureus infection, unspecified site; R21 Rash and other nonspecific skin eruption; Z94.5 Skin transplant status; E66.9 Obesity, unspecified; Z68.32 Body mass index [BMI] 32.0-32.9, adult; Y83.9 Surgical procedure, unspecified as the cause of abnormal reaction of the patient, or of later complication, without mention of misadventure at the time of the procedure
CPT/HCPCS: 10030; 36415; 73590-TC-RT-FY; 73701-TC-RT; 73719; 76882-TC-RT-FY; 80048; 80053; 83735; 84100; 84702; 84703; 85025; 85027; 85610; 85651; 85730; 86140; 86850; 86900; 86901; 87070; 87075; 87081; 87102; 87116; 87205; 87206; 87210; 88304-TC; 93005; 93010; 94760; 97116-GP; 97161-GP; 99285-25; G0480; J0131; Q9967

== ENCOUNTER 2024-07-03 19:00 | Emergency (ER) | payer OTHER ==
[2024-07-03 19:20] VITALS: BP 154/94; PULSE 100; RESP 18; TEMP 98.6; BMI 28.4
== END 2024-07-03 21:18 | disposition home or self-care (01) ==
LOC: JER 19:00
DX: L76.82 Other postprocedural complications of skin and subcutaneous tissue (principal)
CPT/HCPCS: 99283-25

== ENCOUNTER 2024-08-13 17:24 | Observation (INO) | payer OTHER ==
[2024-08-13 17:30] VITALS: BMI 26.2
[2024-08-13 19:05] LABS: BASO % 0.9 % (0-2.0); HEMATOCRIT 37.2 % (32.4-45.2); HEMOGLOBIN 12.2 GM/dL (10.7-15.3); LYMPH % 18.7 % (8-40); MCH 28.3 pg (25.7-33.7); MCHC 32.7 g/dl (32.0-36.0); MEAN CELL VOLUME 86.4 fl (80-96); MEAN PLT VOLUME 8.2 fl (7.5-11.1); MONO % 9.1 % (3.8-10.2); NEUT % 69.3 % (42.8-82.8); PLATELET COUNT 270 10^3/uL (134-434); RBC 4.31 M/mm3 (3.60-5.2); RDW 18.3 % (11.6-15.6); WHITE BLOOD COUNT 9.6 K/mm3 (4.0-10.0)
[2024-08-13 19:24] LABS: CHLORIDE 103 mmol/L (98-107); POTASSIUM 4.2 mmol/L (3.5-5.1); SODIUM 137 mmol/L (136-145)
[2024-08-13 19:25] LABS: CALCIUM 9.9 mg/dL (8.5-10.1)
[2024-08-13 19:26] LABS: ALBUMIN 3.6 g/dl (3.4-5.0); ANION GAP 10 mmol/L (4-13); BLOOD UREA NITROGEN 13.9 mg/dL (7-18); CO2 24 mmol/L (21-32); GLUCOSE,RANDOM 88 mg/dL (74-106)
[2024-08-13 19:29] LABS: CREATININE 1.2 mg/dL (0.55-1.3); SGOT/AST 26 U/L (15-37); SGPT/ALT 27 U/L (13-61)
[2024-08-13 19:31] LABS: BILIRUBIN,TOTAL 0.8 mg/dL (0.2-1); TOT PROT 8.8 g/dl (6.4-8.2)
[2024-08-13 19:32] LABS: ALK PHOS 79 U/L (45-117)
[2024-08-13] MEDS ORDERED: PIPERACILLIN/TAZOB 3.375 GM 3.375 GM/50 ML BAG IVPB ONE (19:32)
[2024-08-13] MEDS: PIPERACILLIN/TAZOB 3.375 GM 3.375 GM in DEXTROSE 5%-WATER - 50 ML IVPB ONE (19:50)
[2024-08-13 20:30] LABS: ERYTHROCYTE SEDIMENTATION RATE 38 mm/hr (0-20)
[2024-08-14] MEDS: PIPERACILLIN/TAZOB 3.375 GM 3.375 GM in DEXTROSE 5%-WATER - 50 ML IVPB SCH (03:11)
[2024-08-14] MEDS: LINEZOLID 600 MG PREMIX BAG 600 MG/300 ML BAG IVPB SCH (04:06)
[2024-08-14 08:20] LABS: POTASSIUM 3.9 mmol/L (3.5-5.1)
[2024-08-14 08:22] LABS: ALBUMIN 3.1 g/dl (3.4-5.0); CALCIUM 9.5 mg/dL (8.5-10.1); MAGNESIUM 1.8 mg/dL (1.8-2.4)
[2024-08-14 08:25] LABS: HEMATOCRIT 34.5 % (32.4-45.2); HEMOGLOBIN 11.1 GM/dL (10.7-15.3); MCH 27.9 pg (25.7-33.7); MCHC 32.1 g/dl (32.0-36.0); MEAN CELL VOLUME 86.7 fl (80-96); MEAN PLT VOLUME 8.5 fl (7.5-11.1); PHOSPHOROUS 3.2 mg/dL (2.5-4.9); PLATELET COUNT 227 10^3/uL (134-434); RBC 3.98 M/mm3 (3.60-5.2); RDW 17.7 % (11.6-15.6); WHITE BLOOD COUNT 8.3 K/mm3 (4.0-10.0)
[2024-08-14 08:27] LABS: BILIRUBIN,TOTAL 0.8 mg/dL (0.2-1); TOT PROT 7.4 g/dl (6.4-8.2)
[2024-08-14] MEDS: ENOXAPARIN NA (PORCINE) 40 MG/0.4 ML DISP.SYRIN SQ SCH (09:20)
[2024-08-14] MEDS: amLODIPine BESYLATE 10 MG TABLET (FP) PO SCH (09:22)
[2024-08-14] MEDS: PIPERACILLIN/TAZOB 3.375 GM 50 ML IVPB SCH (09:23)
[2024-08-14] MEDS: LOSARTAN 50MG/HCTZ 12.5MG 1 TAB PO SCH (10:26)
[2024-08-14] MEDS: MINERAL OIL/PET HY-PHL TOPICAL OINTMENT 454 GM JAR TP SCH (16:30)
[2024-08-14] MEDS: CEFAZOLIN 2 GM/D5W 2 GM/50 ML ML IVPB SCH (18:02)
[2024-08-14] MEDS ORDERED: LINEZOLID 600 MG PREMIX BAG 600 MG/300 ML BAG IVPB SCH (22:00)
[2024-08-15] MEDS ORDERED: PIPERACILLIN/TAZOB 3.375 GM 3.375 GM in DEXTROSE 5%-WATER - 50 ML IVPB SCH (03:00)
[2024-08-15 08:48] LABS: BASO % 0.7 % (0-2.0); EOS % 4.4 % (0-4.5); HEMATOCRIT 35.8 % (32.4-45.2); HEMOGLOBIN 11.4 GM/dL (10.7-15.3); LYMPH % 20.1 % (8-40); MCH 28.1 pg (25.7-33.7); MCHC 31.8 g/dl (32.0-36.0); MEAN CELL VOLUME 88.6 fl (80-96); MEAN PLT VOLUME 8.6 fl (7.5-11.1); MONO % 10.6 % (3.8-10.2); NEUT % 64.2 % (42.8-82.8); PLATELET COUNT 231 10^3/uL (134-434); RBC 4.04 M/mm3 (3.60-5.2); RDW 17.9 % (11.6-15.6); WHITE BLOOD COUNT 8.1 K/mm3 (4.0-10.0)
[2024-08-15 09:11] LABS: POTASSIUM 4.1 mmol/L (3.5-5.1)
[2024-08-15 09:16] LABS: ALBUMIN 3.2 g/dl (3.4-5.0); CALCIUM 9.7 mg/dL (8.5-10.1); MAGNESIUM 1.7 mg/dL (1.8-2.4)
[2024-08-15 09:20] LABS: BILIRUBIN,TOTAL 0.6 mg/dL (0.2-1); CREATININE 0.9 mg/dL (0.55-1.3); TOT PROT 7.5 g/dl (6.4-8.2)
[2024-08-15] MEDS: MAGNESIUM OXIDE 400 MG TABLET (FP) PO ONE (11:06)
[2024-08-15 18:15] VITALS: BP 117/85; PULSE 74; RESP 20; TEMP 97.5
== END 2024-08-15 18:26 | disposition home or self-care (01) ==
LOC: JER 17:24 → JERBED 20:59 → J7W 08-14 03:01
PROVIDERS: ADMIT Internal Medicine; ATTEND Nurse Practitioner Family
DX: S91.301D Unspecified open wound, right foot, subsequent encounter (principal); I10 Essential (primary) hypertension; Z86.14 Personal history of Methicillin resistant Staphylococcus aureus infection; X58.XXXD Exposure to other specified factors, subsequent encounter; F17.210 Nicotine dependence, cigarettes, uncomplicated; Z88.8 Allergy status to other drugs, medicaments and biological substances; L85.3 Xerosis cutis
CPT/HCPCS: 36415; 73590-TC-RT-FY; 73610-TC-RT-FY; 73630-TC-RT-FY; 80053; 83036; 83735; 84100; 85025; 85027; 85651; 86140; 87070; 87076; 87077; 87186; 87205; 93005; 93010; 96365; 96366; 96367; 96368; 96372; 99285-25; G0378

== ENCOUNTER 2024-09-07 18:02 | Emergency (ER) | payer OTHER ==
[2024-09-07 18:20] VITALS: BP 104/72; PULSE 88; RESP 16; TEMP 97.9; BMI 28.1
[2024-09-07 20:12] LABS: BASO % 0.5 % (0-2.0); EOS % 2.1 % (0-4.5); HEMATOCRIT 34.3 % (32.4-45.2); HEMOGLOBIN 10.9 GM/dL (10.7-15.3); LYMPH % 23.3 % (8-40); MCH 27.8 pg (25.7-33.7); MCHC 31.9 g/dl (32.0-36.0); MEAN CELL VOLUME 87.3 fl (80-96); MEAN PLT VOLUME 7.9 fl (7.5-11.1); MONO % 7.9 % (3.8-10.2); NEUT % 66.2 % (42.8-82.8); PLATELET COUNT 249 10^3/uL (134-434); RBC 3.93 M/mm3 (3.60-5.2); RDW 17.8 % (11.6-15.6); WHITE BLOOD COUNT 9.4 K/mm3 (4.0-10.0)
[2024-09-07 20:48] LABS: CHLORIDE 109 mmol/L (98-107); POTASSIUM 3.6 mmol/L (3.5-5.1); SODIUM 138 mmol/L (136-145)
[2024-09-07 20:50] LABS: CALCIUM 9.1 mg/dL (8.5-10.1)
[2024-09-07 20:51] LABS: ALBUMIN 3.4 g/dl (3.4-5.0); ANION GAP 7 mmol/L (4-13); BLOOD UREA NITROGEN 17.2 mg/dL (7-18); CO2 22 mmol/L (21-32); GLUCOSE,RANDOM 96 mg/dL (74-106)
[2024-09-07 20:54] LABS: CREATININE 1.1 mg/dL (0.55-1.3); SGOT/AST 24 U/L (15-37); SGPT/ALT 26 U/L (13-61)
[2024-09-07 20:56] LABS: BILIRUBIN,TOTAL 0.6 mg/dL (0.2-1); TOT PROT 7.9 g/dl (6.4-8.2)
[2024-09-07 20:57] LABS: ALK PHOS 69 U/L (45-117)
[2024-09-07 21:07] LABS: ERYTHROCYTE SEDIMENTATION RATE 40 mm/hr (0-20)
== END 2024-09-07 20:54 | disposition home or self-care (01) ==
LOC: JER 18:02
DX: L03.115 Cellulitis of right lower limb (principal)
CPT/HCPCS: 36415; 73610-TC-RT-FY; 73630-TC-RT-FY; 80053; 85025; 85651; 86140; 99284-25

== ENCOUNTER 2025-06-16 03:24 | Emergency (ER) | payer OTHER ==
[2025-06-16 03:47] VITALS: RESP 19; TEMP 98; BMI 29.8
[2025-06-16 04:47] VITALS: BP 135/80; PULSE 79
== END 2025-06-16 04:52 | disposition home or self-care (01) ==
LOC: JER 03:24
DX: R23.4 Changes in skin texture (principal)
CPT/HCPCS: 99283-25